=== PATIENT | male | born 1950 | race African-American/Black ===

== ENCOUNTER 2020-12-08 15:30 | Inpatient (IN) | payer MEDICARE ==
[2020-12-08] MEDS ORDERED: Ketorolac Tromethamine 30 MG/ML VIAL ONE (17:13)
[2020-12-08 18:45] LABS: Hemoglobin 12.5 g/dL (14.0-18.0); Mean Corpuscular HGB CONC 35.3 g/dL (32.0-36.0); Mean Corpuscular Hemoglobin 31.4 pg (27.0-31.0); Mean Corpuscular Volume 88.9 fL (78.0-98.0); Mean Platelet Volume 6.7 fL (7.4-10.4); Platelet Count 173 thou/uL (130-400); RBC Distribution Width 12.9 % (11.5-14.5); Red Blood Cell (RBC) Count 3.99 mill/uL (4.70-6.10); White Blood Cell (WBC) Count 2.5 thou/uL (4.8-10.8)
[2020-12-08 19:04] LABS: Band 9 % (5-11); Lymphocytes 19 % (21-51); MDiff Complete? YES; Monocytes 14 % (0-10); Neutrophil 58 % (42-75); Platelet Morphology Comment Appears Adequate; RBC Morphology Normal
[2020-12-08 19:07] LABS: ALT (SGPT) 9 U/L (8-55); AST (SGOT) 21 U/L (5-34); Albumin 4.1 g/dL (3.4-4.8); Alkaline Phosphatase 100 U/L (40-110); Anion Gap 18 mmol/L (10-20); BUN (Urea Nitrogen) 20 mg/dL (8.4-25.7); Calc. Creatinine Clearance 0 mL/min (70-130); Calcium 9.3 mg/dL (7.8-10.44); Carbon Dioxide 18 mmol/L (23-31); Chloride 99 mmol/L (98-107); Globulin 3.9 g/dL (2.4-3.5); Glucose 125 mg/dL (83-110); Potassium 3.5 mmol/L (3.5-5.1); Sodium 131 mmol/L (136-145)
[2020-12-08] MEDS ORDERED: Enoxaparin Sodium 80 MG/0.8 ML SYRINGE ONE (19:57)
[2020-12-08] MEDS ORDERED: Piperacillin/Tazobactam 4.5 GM VIAL ONE (19:58)
[2020-12-08 21:14] LABS: Bilirubin Negative (Negative); Blood, Urine Negative (Negative); Clarity Clear (Clear); Glucose, Urine (Dipstick) Normal (Negative); Ketone, Urine Negative (Negative); Leukocyte Negative Leu/uL (Negative); Nitrite Negative (Negative); Protein, Urine (Dipstick) 20 mg/dL (Neg-Trace); Specific Gravity, Urine 1.007 (1.002-1.036); Urobilinogen Normal mg/dL (Less than 2); pH, Urine 6.5 (5.0-9.0)
[2020-12-08 22:01] LABS: Lactic Acid 1.4 mmol/L (0.5-2.2)
[2020-12-08] MEDS ORDERED: Ondansetron PF 4 MG/2 ML Vial IVP PRN (23:15)
[2020-12-08] MEDS ORDERED: Ondansetron ODT 4 MG TAB PO PRN (23:15)
[2020-12-09] MEDS: Piperacillin/Tazobactam 3.375 GM in Sodium Chloride 0.9% 100 ML IVPB SCH ×5 (00:01→18:12)
[2020-12-09] MEDS ORDERED: Piperacillin/Tazobactam 3.375 GM in Sodium Chloride 0.9% 100 ML IVPB SCH (03:00)
[2020-12-09] MEDS: Acetaminophen 325 MG TAB PO PRN ×2 (05:44→14:57)
[2020-12-09 05:53] LABS: Vancomycin, Random Less than 1.1 ug/mL (See Comment)
[2020-12-09 05:57] LABS: Lymphocytes 16 % (21-51); MDiff Complete? YES; Mean Corpuscular Hemoglobin 31.5 pg (27.0-31.0); Mean Platelet Volume 6.8 fL (7.4-10.4); Monocytes 5 % (0-10); Neutrophil 79 % (42-75); Platelet Count 148 thou/uL (130-400); Platelet Morphology Comment Appears Adequate; RBC Distribution Width 12.8 % (11.5-14.5); Red Blood Cell (RBC) Count 3.82 mill/uL (4.70-6.10); White Blood Cell (WBC) Count 2.9 thou/uL (4.8-10.8)
[2020-12-09 05:58] LABS: Anion Gap 12 mmol/L (10-20); BUN (Urea Nitrogen) 18 mg/dL (8.4-25.7); Calc. Creatinine Clearance 68 mL/min (70-130); Calcium 8.9 mg/dL (7.8-10.44); Carbon Dioxide 21 mmol/L (23-31); Chloride 103 mmol/L (98-107); Glucose 93 mg/dL (83-110); Potassium 3.3 mmol/L (3.5-5.1); Sodium 133 mmol/L (136-145)
[2020-12-09] MEDS ORDERED: VANCOMYCIN 1.75 GM/350 ML BAG 1.75 GM in Premix Bag 1 BAG IVPB SCH (06:15)
[2020-12-09] MEDS ORDERED: Electrolyte Replacement Protocol 1 EACH FS SCH (06:45)
[2020-12-09] MEDS ORDERED: Potassium Chloride 20 MEQ TAB PO SCH (07:00)
[2020-12-09] MEDS ORDERED: Amlodipine 10 MG TAB PO SCH ×3 (09:00→13:15)
[2020-12-09] MEDS ORDERED: Lisinopril 20 MG TAB PO SCH (09:00)
[2020-12-09] MEDS ORDERED: VANCOMYCIN 1.25 GM/250 ML BAG 1.25 GM in Premix Bag 1 BAG IVPB SCH (09:00)
[2020-12-09] MEDS ORDERED: Carvedilol 25 MG TAB PO SCH ×2 (09:00→13:15)
[2020-12-09] MEDS: Cyanocobalamin (Vitamin B-12) 1,000 MCG TAB PO SCH (09:14)
[2020-12-09 10:39] LABS: Amphetamine Not Detected (NotDetected); Barbiturates Screen Not Detected (NotDetected); Benzodiazepine Screen Not Detected (NotDetected); Cocaine Metabolite Screen Not Detected (NotDetected); Methadone Not Detected (NotDetected); Methamphetamine Not Detected (NotDetected); Opiate Screen Not Detected (NotDetected); Oxycodone Screen Not Detected (NotDetected); Phencyclidine (PCP) Not Detected (NotDetected); THC/Cannabinoid Screen Not Detected (NotDetected); Tricyclic Screen Not Detected (NotDetected)
[2020-12-09] MEDS ORDERED: Lisinopril 10 MG TAB PO SCH (13:15)
[2020-12-09] MEDS ORDERED: Vancomycin 1 GM in Premix Bag 1 BAG IVPB SCH (18:00)
[2020-12-09] MEDS: Carvedilol 6.25 MG TAB PO SCH (18:12)
[2020-12-09] MEDS: NS 0.9% w/ 20 MEQ KCL 1,000 ML/1,000 ML BAG IV SCH (18:13)
[2020-12-09] MEDS: Enoxaparin Sodium 40 MG/0.4 ML SYRINGE SC SCH (19:58)
[2020-12-09] MEDS: Famotidine 20 MG TAB PO SCH (19:58)
[2020-12-09] MEDS: Atorvastatin Calcium 40 MG TAB PO SCH (19:59)
[2020-12-09] MEDS: Carvedilol 25 MG TAB PO SCH (19:59)
[2020-12-10] MEDS: Piperacillin/Tazobactam 3.375 GM in Sodium Chloride 0.9% 100 ML IVPB SCH ×3 (01:59→20:45)
[2020-12-10 05:11] LABS: #Lymphocytes 0.5 thou/uL (1.20-3.40); #Monocytes 0.2 thou/uL (0.11-0.59); #Neutrophils 1.7 thou/uL (1.40-6.50); %Eosinophils 0.6 % (0.0-10.0); %Lymphocytes 20.5 % (21.0-51.0); %Monocytes 8.7 % (0.0-10.0); %Neutrophils 70.3 % (42.0-75.0); Hemoglobin 10.6 g/dL (14.0-18.0); Mean Corpuscular HGB CONC 34.2 g/dL (32.0-36.0); Mean Corpuscular Hemoglobin 30.6 pg (27.0-31.0); Mean Corpuscular Volume 89.6 fL (78.0-98.0); Mean Platelet Volume 7.2 fL (7.4-10.4); Platelet Count 136 thou/uL (130-400); RBC Distribution Width 12.8 % (11.5-14.5); Red Blood Cell (RBC) Count 3.46 mill/uL (4.70-6.10); White Blood Cell (WBC) Count 2.5 thou/uL (4.8-10.8)
[2020-12-10 05:33] LABS: Anion Gap 13 mmol/L (10-20); BUN (Urea Nitrogen) 16 mg/dL (8.4-25.7); CRP (Inflammatory) 4.57 mg/dL (= or < 0.5); Calc. Creatinine Clearance 56 mL/min (70-130); Calcium 8.6 mg/dL (7.8-10.44); Carbon Dioxide 19 mmol/L (23-31); Chloride 105 mmol/L (98-107); Glucose 102 mg/dL (83-110); Potassium 3.4 mmol/L (3.5-5.1); Sodium 134 mmol/L (136-145)
[2020-12-10] MEDS: hydrALAZINE 20 MG/ML VIAL SLOW IVP PRN (05:36)
[2020-12-10] MEDS ORDERED: Potassium Chloride 20 MEQ TAB PO SCH ×2 (06:30→12:00)
[2020-12-10] MEDS: Carvedilol 6.25 MG TAB PO SCH ×2 (09:52→19:21)
[2020-12-10] MEDS: Amlodipine 10 MG TAB PO SCH (09:53)
[2020-12-10] MEDS: Carvedilol 25 MG TAB PO SCH (09:55)
[2020-12-10] MEDS: Famotidine 20 MG TAB PO SCH ×2 (09:56→20:47)
[2020-12-10] MEDS: Cyanocobalamin (Vitamin B-12) 1,000 MCG TAB PO SCH (09:56)
[2020-12-10] MEDS: Enoxaparin Sodium 40 MG/0.4 ML SYRINGE SC SCH ×2 (09:56→20:47)
[2020-12-10] MEDS: Lisinopril 10 MG TAB PO SCH (09:57)
[2020-12-10] MEDS: Tamsulosin HCl 0.4 MG CAP PO SCH (09:57)
[2020-12-10] MEDS ORDERED: Iopamidol-370 76% 500 ML 1 ML ONE (10:53)
[2020-12-10] MEDS: NS 0.9% w/ 20 MEQ KCL 1,000 ML/1,000 ML BAG IV SCH (19:17)
[2020-12-10] MEDS: Atorvastatin Calcium 40 MG TAB PO SCH (20:47)
[2020-12-10] MEDS: Carvedilol 3.125 MG TAB PO SCH (20:47)
[2020-12-11] MEDS: Piperacillin/Tazobactam 3.375 GM in Sodium Chloride 0.9% 100 ML IVPB SCH ×3 (02:14→17:30)
[2020-12-11] MEDS: hydrALAZINE 20 MG/ML VIAL SLOW IVP PRN (04:35)
[2020-12-11] MEDS: Famotidine 20 MG TAB PO SCH ×2 (08:11→21:43)
[2020-12-11] MEDS: Lisinopril 10 MG TAB PO SCH (08:11)
[2020-12-11] MEDS: Tamsulosin HCl 0.4 MG CAP PO SCH (08:11)
[2020-12-11] MEDS: Carvedilol 3.125 MG TAB PO SCH ×2 (08:11→17:54)
[2020-12-11] MEDS: Amlodipine 10 MG TAB PO SCH (08:11)
[2020-12-11] MEDS: Cyanocobalamin (Vitamin B-12) 1,000 MCG TAB PO SCH (08:12)
[2020-12-11] MEDS: Enoxaparin Sodium 40 MG/0.4 ML SYRINGE SC SCH ×2 (08:12→21:43)
[2020-12-11] MEDS ORDERED: Lisinopril 20 MG TAB PO SCH (09:00)
[2020-12-11] MEDS ORDERED: Amlodipine 10 MG TAB PO SCH (09:00)
[2020-12-11] MEDS ORDERED: Lisinopril 10 MG TAB PO SCH ×2 (09:00→10:00)
[2020-12-11] MEDS ORDERED: Carvedilol 6.25 MG TAB PO SCH ×2 (09:00→21:00)
[2020-12-11] MEDS ORDERED: Carvedilol 3.125 MG TAB PO SCH ×2 (09:00→10:00)
[2020-12-11] MEDS ORDERED: NIFEdipine XL 30 MG TAB PO SCH (10:45)
[2020-12-11] MEDS: Lisinopril 20 MG TAB PO SCH (21:43)
[2020-12-11] MEDS: Atorvastatin Calcium 40 MG TAB PO SCH (21:43)
[2020-12-11] MEDS: Acetaminophen 325 MG TAB PO PRN (21:44)
[2020-12-12] MEDS: Piperacillin/Tazobactam 3.375 GM in Sodium Chloride 0.9% 100 ML IVPB SCH ×3 (01:54→16:41)
[2020-12-12] MEDS: Acetaminophen 325 MG TAB PO PRN ×2 (07:37→15:33)
[2020-12-12] MEDS: Enoxaparin Sodium 40 MG/0.4 ML SYRINGE SC SCH ×2 (07:37→21:07)
[2020-12-12] MEDS: Carvedilol 3.125 MG TAB PO SCH ×2 (07:44→16:41)
[2020-12-12] MEDS: Tamsulosin HCl 0.4 MG CAP PO SCH (07:45)
[2020-12-12] MEDS: Famotidine 20 MG TAB PO SCH (07:45)
[2020-12-12] MEDS: Lisinopril 20 MG TAB PO SCH ×2 (07:46→21:07)
[2020-12-12] MEDS: Cyanocobalamin (Vitamin B-12) 1,000 MCG TAB PO SCH (07:47)
[2020-12-12] MEDS ORDERED: NIFEdipine XL 30 MG TAB PO SCH ×2 (09:00→10:41)
[2020-12-12] MEDS: NIFEdipine XL 30 MG TAB PO SCH ×2 (09:55→21:07)
[2020-12-12] MEDS: traMADol HCl 50 MG TAB PO PRN ×2 (12:39→21:14)
[2020-12-12] MEDS: Atorvastatin Calcium 40 MG TAB PO SCH (21:07)
[2020-12-13] MEDS: Piperacillin/Tazobactam 3.375 GM in Sodium Chloride 0.9% 100 ML IVPB SCH ×2 (01:45→09:05)
[2020-12-13] MEDS ORDERED: Famotidine 20 MG TAB PO SCH (09:00)
[2020-12-13] MEDS: Enoxaparin Sodium 40 MG/0.4 ML SYRINGE SC SCH ×2 (09:05→21:34)
[2020-12-13] MEDS: NIFEdipine XL 30 MG TAB PO SCH ×2 (09:05→21:35)
[2020-12-13] MEDS: Lisinopril 20 MG TAB PO SCH ×2 (09:06→21:34)
[2020-12-13] MEDS: Carvedilol 3.125 MG TAB PO SCH ×2 (09:06→16:58)
[2020-12-13] MEDS: Cyanocobalamin (Vitamin B-12) 1,000 MCG TAB PO SCH (09:06)
[2020-12-13] MEDS: Tamsulosin HCl 0.4 MG CAP PO SCH (09:06)
[2020-12-13] MEDS ORDERED: Sodium Chloride 0.9% 1,000 ML IV SCH (11:15)
[2020-12-13 12:00] LABS: #Lymphocytes 0.4 thou/uL (1.20-3.40); #Monocytes 0.2 thou/uL (0.11-0.59); #Neutrophils 1.8 thou/uL (1.40-6.50); %Basophils 0.9 % (0.0-1.0); %Eosinophils 0.1 % (0.0-10.0); %Lymphocytes 17.3 % (21.0-51.0); %Monocytes 8.7 % (0.0-10.0); %Neutrophils 73.1 % (42.0-75.0); Hemoglobin 11.6 g/dL (14.0-18.0); Mean Corpuscular HGB CONC 35.1 g/dL (32.0-36.0); Mean Corpuscular Hemoglobin 31.2 pg (27.0-31.0); Mean Corpuscular Volume 88.6 fL (78.0-98.0); Mean Platelet Volume 7.3 fL (7.4-10.4); Platelet Count 159 thou/uL (130-400); RBC Distribution Width 12.5 % (11.5-14.5); Red Blood Cell (RBC) Count 3.72 mill/uL (4.70-6.10); White Blood Cell (WBC) Count 2.5 thou/uL (4.8-10.8)
[2020-12-13 12:24] LABS: ALT (SGPT) 15 U/L (8-55); AST (SGOT) 35 U/L (5-34); Albumin 3.4 g/dL (3.4-4.8); Alkaline Phosphatase 69 U/L (40-110); Anion Gap 12 mmol/L (10-20); BUN (Urea Nitrogen) 15 mg/dL (8.4-25.7); Bilirubin, Total 0.8 mg/dL (0.2-1.2); CRP (Inflammatory) 6.48 mg/dL (= or < 0.5); Calc. Creatinine Clearance 69 mL/min (70-130); Calcium 8.9 mg/dL (7.8-10.44); Carbon Dioxide 20 mmol/L (23-31); Chloride 103 mmol/L (98-107); Globulin 3.8 g/dL (2.4-3.5); Glucose 123 mg/dL (83-110); Potassium 3.4 mmol/L (3.5-5.1); Protein, Total 7.2 g/dL (5.8-8.1); Sodium 132 mmol/L (136-145)
[2020-12-13] MEDS ORDERED: Potassium Chloride 20 MEQ TAB PO SCH ×2 (13:15→15:45)
[2020-12-13] MEDS: Acetaminophen 325 MG TAB PO PRN (17:24)
[2020-12-13] MEDS: Amino Acids 4.25 %/Dextrose 5% 1,000 ML IV SCH (17:25)
[2020-12-13] MEDS: Atorvastatin Calcium 40 MG TAB PO SCH (21:34)
[2020-12-14 05:38] LABS: #Lymphocytes 0.5 thou/uL (1.20-3.40); #Monocytes 0.2 thou/uL (0.11-0.59); #Neutrophils 1.4 thou/uL (1.40-6.50); %Basophils 0.7 % (0.0-1.0); %Eosinophils 0.7 % (0.0-10.0); %Lymphocytes 23.2 % (21.0-51.0); %Monocytes 9.3 % (0.0-10.0); %Neutrophils 66.1 % (42.0-75.0); Hemoglobin 11.9 g/dL (14.0-18.0); Mean Corpuscular HGB CONC 35.2 g/dL (32.0-36.0); Mean Corpuscular Hemoglobin 31.3 pg (27.0-31.0); Mean Corpuscular Volume 88.9 fL (78.0-98.0); Mean Platelet Volume 7.4 fL (7.4-10.4); Platelet Count 162 thou/uL (130-400); RBC Distribution Width 12.5 % (11.5-14.5); White Blood Cell (WBC) Count 2.1 thou/uL (4.8-10.8)
[2020-12-14] MEDS: traMADol HCl 50 MG TAB PO PRN (05:45)
[2020-12-14 06:02] LABS: ALT (SGPT) 22 U/L (8-55); AST (SGOT) 42 U/L (5-34); Albumin 3.5 g/dL (3.4-4.8); Alkaline Phosphatase 69 U/L (40-110); Anion Gap 11 mmol/L (10-20); BUN (Urea Nitrogen) 17 mg/dL (8.4-25.7); Bilirubin, Total 0.8 mg/dL (0.2-1.2); CRP (Inflammatory) 8.46 mg/dL (= or < 0.5); Calc. Creatinine Clearance 77 mL/min (70-130); Calcium 9.1 mg/dL (7.8-10.44); Carbon Dioxide 20 mmol/L (23-31); Chloride 107 mmol/L (98-107); Globulin 3.8 g/dL (2.4-3.5); Glucose 117 mg/dL (83-110); Magnesium 1.8 mg/dL (1.6-2.6); Potassium 3.6 mmol/L (3.5-5.1); Protein, Total 7.3 g/dL (5.8-8.1); Sodium 134 mmol/L (136-145)
[2020-12-14] MEDS ORDERED: Magnesium 2 GM/50 ML 2 GM in Premix Bag 1 BAG IVPB SCH (06:30)
[2020-12-14] MEDS: Cyanocobalamin (Vitamin B-12) 1,000 MCG TAB PO SCH (08:15)
[2020-12-14] MEDS: Carvedilol 3.125 MG TAB PO SCH ×3 (08:15→15:27)
[2020-12-14] MEDS: Enoxaparin Sodium 40 MG/0.4 ML SYRINGE SC SCH ×2 (08:15→21:45)
[2020-12-14] MEDS: Ascorbic Acid 500 mg Chewable Tablet PO SCH (08:15)
[2020-12-14] MEDS: Cholecalciferol (Vitamin D3) 400 UNITS TAB PO SCH (08:15)
[2020-12-14] MEDS: NIFEdipine XL 30 MG TAB PO SCH ×2 (08:16→21:44)
[2020-12-14] MEDS: Zinc Sulfate 220 MG CAP PO SCH (08:16)
[2020-12-14] MEDS: Tamsulosin HCl 0.4 MG CAP PO SCH (08:16)
[2020-12-14] MEDS: Lisinopril 20 MG TAB PO SCH ×2 (08:16→21:44)
[2020-12-14] MEDS ORDERED: Amino Acids 4.25 %/Dextrose 5% 2,000 ML BAG IV SCH (09:00)
[2020-12-14] MEDS: Acetaminophen 325 MG TAB PO PRN (10:29)
[2020-12-14] MEDS: Dexamethasone 4 mg/ml Vial SLOW IVP SCH (15:27)
[2020-12-14] MEDS: Amino Acids 4.25 %/Dextrose 5% 1,000 ML IV SCH (15:27)
[2020-12-14] MEDS: Atorvastatin Calcium 40 MG TAB PO SCH (21:44)
[2020-12-15] MEDS: Carvedilol 3.125 MG TAB PO SCH ×2 (08:38→16:49)
[2020-12-15] MEDS: Zinc Sulfate 220 MG CAP PO SCH (08:38)
[2020-12-15] MEDS: Ascorbic Acid 500 mg Chewable Tablet PO SCH (08:38)
[2020-12-15] MEDS: Cyanocobalamin (Vitamin B-12) 1,000 MCG TAB PO SCH (08:39)
[2020-12-15] MEDS: Enoxaparin Sodium 40 MG/0.4 ML SYRINGE SC SCH ×2 (08:39→22:28)
[2020-12-15] MEDS: Cholecalciferol (Vitamin D3) 400 UNITS TAB PO SCH (08:39)
[2020-12-15] MEDS: Lisinopril 20 MG TAB PO SCH ×2 (08:39→22:28)
[2020-12-15] MEDS: NIFEdipine XL 30 MG TAB PO SCH ×2 (08:39→22:28)
[2020-12-15] MEDS: Tamsulosin HCl 0.4 MG CAP PO SCH (08:40)
[2020-12-15] MEDS ORDERED: Amino Acids 4.25 %/Dextrose 5% 1,000 ML IV SCH (10:45)
[2020-12-15] MEDS ORDERED: Bisacodyl 10 MG SUPP PR SCH (11:15)
[2020-12-15] MEDS: Acetaminophen 325 MG TAB PO PRN (12:39)
[2020-12-15] MEDS: Dexamethasone 4 mg/ml Vial SLOW IVP SCH (16:49)
[2020-12-15] MEDS: Atorvastatin Calcium 40 MG TAB PO SCH (22:28)
[2020-12-15] MEDS: Mirtazapine 15 MG TAB PO SCH (22:29)
[2020-12-16 07:05] LABS: #Lymphocytes 0.3 thou/uL (1.20-3.40); #Monocytes 0.2 thou/uL (0.11-0.59); #Neutrophils 3.4 thou/uL (1.40-6.50); %Eosinophils 0.2 % (0.0-10.0); %Lymphocytes 6.8 % (21.0-51.0); %Monocytes 5.9 % (0.0-10.0); %Neutrophils 87.1 % (42.0-75.0); Hemoglobin 12.3 g/dL (14.0-18.0); Mean Corpuscular HGB CONC 34.3 g/dL (32.0-36.0); Mean Corpuscular Hemoglobin 30.6 pg (27.0-31.0); Mean Corpuscular Volume 89.1 fL (78.0-98.0); Mean Platelet Volume 7.5 fL (7.4-10.4); Platelet Count 242 thou/uL (130-400); RBC Distribution Width 12.4 % (11.5-14.5); Red Blood Cell (RBC) Count 4.02 mill/uL (4.70-6.10); White Blood Cell (WBC) Count 3.9 thou/uL (4.8-10.8)
[2020-12-16 07:21] LABS: Anion Gap 11 mmol/L (10-20); BUN (Urea Nitrogen) 25 mg/dL (8.4-25.7); CRP (Inflammatory) 2.59 mg/dL (= or < 0.5); Calc. Creatinine Clearance 82 mL/min (70-130); Calcium 9.4 mg/dL (7.8-10.44); Carbon Dioxide 19 mmol/L (23-31); Chloride 109 mmol/L (98-107); Glucose 141 mg/dL (83-110); Potassium 3.7 mmol/L (3.5-5.1); Sodium 135 mmol/L (136-145)
[2020-12-16] MEDS: Tamsulosin HCl 0.4 MG CAP PO SCH (08:13)
[2020-12-16] MEDS: Zinc Sulfate 220 MG CAP PO SCH (08:13)
[2020-12-16] MEDS: Cholecalciferol (Vitamin D3) 400 UNITS TAB PO SCH (08:13)
[2020-12-16] MEDS: Enoxaparin Sodium 40 MG/0.4 ML SYRINGE SC SCH ×2 (08:13→21:57)
[2020-12-16] MEDS: Cyanocobalamin (Vitamin B-12) 1,000 MCG TAB PO SCH (08:13)
[2020-12-16] MEDS: Carvedilol 3.125 MG TAB PO SCH (08:13)
[2020-12-16] MEDS: NIFEdipine XL 30 MG TAB PO SCH ×2 (08:13→21:56)
[2020-12-16] MEDS: Ascorbic Acid 500 mg Chewable Tablet PO SCH (08:14)
[2020-12-16] MEDS: Lisinopril 20 MG TAB PO SCH ×2 (08:14→21:57)
[2020-12-16] MEDS: Megestrol Acetate 40 MG TAB PO SCH ×2 (14:59→21:57)
[2020-12-16] MEDS: hydrALAZINE 25 MG TAB PO SCH ×2 (14:59→21:57)
[2020-12-16] MEDS: hydrALAZINE 20 MG/ML VIAL SLOW IVP PRN (15:09)
[2020-12-16] MEDS: traMADol HCl 50 MG TAB PO PRN (17:02)
[2020-12-16] MEDS: Mirtazapine 15 MG TAB PO SCH (21:57)
[2020-12-16] MEDS: Atorvastatin Calcium 40 MG TAB PO SCH (21:57)
[2020-12-16] MEDS ORDERED: Amino Acids 4.25 %/Dextrose 5% 2,000 ML IV SCH (22:30)
[2020-12-17 05:28] LABS: #Lymphocytes 0.5 thou/uL (1.20-3.40); #Monocytes 0.4 thou/uL (0.11-0.59); %Lymphocytes 10.2 % (21.0-51.0); %Monocytes 7.4 % (0.0-10.0); %Neutrophils 82.4 % (42.0-75.0); Hemoglobin 11.4 g/dL (14.0-18.0); Mean Corpuscular Hemoglobin 30.1 pg (27.0-31.0); Mean Corpuscular Volume 88.5 fL (78.0-98.0); Mean Platelet Volume 6.9 fL (7.4-10.4); Platelet Count 232 thou/uL (130-400); RBC Distribution Width 12.4 % (11.5-14.5); White Blood Cell (WBC) Count 4.8 thou/uL (4.8-10.8)
[2020-12-17 06:02] LABS: Anion Gap 11 mmol/L (10-20); BUN (Urea Nitrogen) 23 mg/dL (8.4-25.7); CRP (Inflammatory) 1.33 mg/dL (= or < 0.5); Calc. Creatinine Clearance 82 mL/min (70-130); Calcium 8.8 mg/dL (7.8-10.44); Carbon Dioxide 16 mmol/L (23-31); Chloride 111 mmol/L (98-107); Glucose 105 mg/dL (83-110); Magnesium 1.8 mg/dL (1.6-2.6); Potassium 3.2 mmol/L (3.5-5.1); Sodium 135 mmol/L (136-145)
[2020-12-17] MEDS ORDERED: Potassium Chloride 20 MEQ TAB PO SCH (06:30)
[2020-12-17] MEDS ORDERED: Magnesium 2 GM/50 ML 2 GM in Premix Bag 1 BAG IVPB SCH (06:30)
[2020-12-17] MEDS: Ascorbic Acid 500 mg Chewable Tablet PO SCH (07:56)
[2020-12-17] MEDS: Cholecalciferol (Vitamin D3) 400 UNITS TAB PO SCH (07:57)
[2020-12-17] MEDS: hydrALAZINE 25 MG TAB PO SCH ×3 (07:57→21:51)
[2020-12-17] MEDS: Megestrol Acetate 40 MG TAB PO SCH ×3 (07:57→21:53)
[2020-12-17] MEDS: Enoxaparin Sodium 40 MG/0.4 ML SYRINGE SC SCH ×2 (07:57→21:51)
[2020-12-17] MEDS: NIFEdipine XL 30 MG TAB PO SCH ×2 (07:57→21:53)
[2020-12-17] MEDS: Cyanocobalamin (Vitamin B-12) 1,000 MCG TAB PO SCH (07:58)
[2020-12-17] MEDS: Tamsulosin HCl 0.4 MG CAP PO SCH (07:58)
[2020-12-17] MEDS: Lisinopril 20 MG TAB PO SCH ×2 (07:58→21:52)
[2020-12-17] MEDS: Zinc Sulfate 220 MG CAP PO SCH (07:58)
[2020-12-17] MEDS: hydrALAZINE 20 MG/ML VIAL SLOW IVP PRN (12:25)
[2020-12-17] MEDS: Atorvastatin Calcium 40 MG TAB PO SCH (21:51)
[2020-12-17] MEDS: Mirtazapine 15 MG TAB PO SCH (21:52)
[2020-12-18 05:36] LABS: #Lymphocytes 0.4 thou/uL (1.20-3.40); #Monocytes 0.3 thou/uL (0.11-0.59); #Neutrophils 3.1 thou/uL (1.40-6.50); %Eosinophils 0.8 % (0.0-10.0); %Lymphocytes 11.2 % (21.0-51.0); %Monocytes 8.2 % (0.0-10.0); %Neutrophils 79.9 % (42.0-75.0); Hemoglobin 11.4 g/dL (14.0-18.0); Mean Corpuscular HGB CONC 35.1 g/dL (32.0-36.0); Mean Corpuscular Hemoglobin 31.2 pg (27.0-31.0); Mean Corpuscular Volume 88.9 fL (78.0-98.0); Mean Platelet Volume 6.8 fL (7.4-10.4); Platelet Count 243 thou/uL (130-400); RBC Distribution Width 12.7 % (11.5-14.5); Red Blood Cell (RBC) Count 3.64 mill/uL (4.70-6.10); White Blood Cell (WBC) Count 3.9 thou/uL (4.8-10.8)
[2020-12-18 05:56] LABS: Anion Gap 9 mmol/L (10-20); BUN (Urea Nitrogen) 23 mg/dL (8.4-25.7); Calc. Creatinine Clearance 72 mL/min (70-130); Calcium 8.7 mg/dL (7.8-10.44); Carbon Dioxide 18 mmol/L (23-31); Chloride 110 mmol/L (98-107); Glucose 99 mg/dL (83-110); Magnesium 1.9 mg/dL (1.6-2.6); Sodium 134 mmol/L (136-145)
[2020-12-18] MEDS ORDERED: Potassium Chloride 20 MEQ TAB PO SCH (07:00)
[2020-12-18] MEDS ORDERED: Magnesium 2 GM/50 ML 2 GM in Premix Bag 1 BAG IVPB SCH (07:00)
[2020-12-18] MEDS: Ascorbic Acid 500 mg Chewable Tablet PO SCH (07:38)
[2020-12-18] MEDS: Cholecalciferol (Vitamin D3) 400 UNITS TAB PO SCH (07:39)
[2020-12-18] MEDS: Enoxaparin Sodium 40 MG/0.4 ML SYRINGE SC SCH ×2 (07:39→21:21)
[2020-12-18] MEDS: hydrALAZINE 25 MG TAB PO SCH ×3 (07:39→21:21)
[2020-12-18] MEDS: Lisinopril 20 MG TAB PO SCH ×2 (07:39→21:21)
[2020-12-18] MEDS: Cyanocobalamin (Vitamin B-12) 1,000 MCG TAB PO SCH (07:39)
[2020-12-18] MEDS: NIFEdipine XL 30 MG TAB PO SCH ×2 (07:40→21:22)
[2020-12-18] MEDS: Megestrol Acetate 40 MG TAB PO SCH ×3 (07:40→21:22)
[2020-12-18] MEDS: Zinc Sulfate 220 MG CAP PO SCH (07:41)
[2020-12-18] MEDS: Tamsulosin HCl 0.4 MG CAP PO SCH (07:41)
[2020-12-18] MEDS: Atorvastatin Calcium 40 MG TAB PO SCH (21:21)
[2020-12-18] MEDS: Mirtazapine 15 MG TAB PO SCH (21:22)
[2020-12-19 05:39] LABS: Anion Gap 10 mmol/L (10-20); BUN (Urea Nitrogen) 27 mg/dL (8.4-25.7); Calc. Creatinine Clearance 74 mL/min (70-130); Carbon Dioxide 15 mmol/L (23-31); Chloride 109 mmol/L (98-107); Potassium 3.2 mmol/L (3.5-5.1); Sodium 131 mmol/L (136-145)
[2020-12-19 05:40] LABS: Calcium 8.8 mg/dL (7.8-10.44); Glucose 112 mg/dL (83-110)
[2020-12-19] MEDS ORDERED: Potassium Chloride 20 MEQ TAB PO SCH (06:45)
[2020-12-19] MEDS: hydrALAZINE 25 MG TAB PO SCH ×3 (07:43→20:27)
[2020-12-19] MEDS: Enoxaparin Sodium 40 MG/0.4 ML SYRINGE SC SCH ×2 (07:43→20:39)
[2020-12-19] MEDS: Cyanocobalamin (Vitamin B-12) 1,000 MCG TAB PO SCH (07:43)
[2020-12-19] MEDS: Cholecalciferol (Vitamin D3) 400 UNITS TAB PO SCH (07:43)
[2020-12-19] MEDS: Ascorbic Acid 500 mg Chewable Tablet PO SCH (07:43)
[2020-12-19] MEDS: Lisinopril 20 MG TAB PO SCH ×2 (07:44→20:28)
[2020-12-19] MEDS: NIFEdipine XL 30 MG TAB PO SCH ×2 (07:44→20:28)
[2020-12-19] MEDS: Megestrol Acetate 40 MG TAB PO SCH ×3 (07:44→20:28)
[2020-12-19] MEDS: Tamsulosin HCl 0.4 MG CAP PO SCH (07:45)
[2020-12-19] MEDS: Zinc Sulfate 220 MG CAP PO SCH (07:45)
[2020-12-19] MEDS: Atorvastatin Calcium 40 MG TAB PO SCH (20:27)
[2020-12-19] MEDS: Mirtazapine 15 MG TAB PO SCH (20:27)
[2020-12-19] MEDS: Amino Acids 4.25 %/Dextrose 5% 2,000 ML IV SCH (21:57)
[2020-12-20 05:58] VITALS: BMI 21.4
[2020-12-20] MEDS: Tamsulosin HCl 0.4 MG CAP PO SCH (08:57)
[2020-12-20] MEDS: Enoxaparin Sodium 40 MG/0.4 ML SYRINGE SC SCH ×2 (08:58→20:53)
[2020-12-20] MEDS ORDERED: Amino Acids 4.25 %/Dextrose 5% 2,000 ML BAG IV SCH ×2 (09:00)
[2020-12-20] MEDS: Cyanocobalamin (Vitamin B-12) 1,000 MCG TAB PO SCH ×3 (10:50→15:06)
[2020-12-20] MEDS: Ascorbic Acid 500 mg Chewable Tablet PO SCH ×3 (10:50→15:06)
[2020-12-20] MEDS: Megestrol Acetate 40 MG TAB PO SCH ×3 (10:50→20:57)
[2020-12-20] MEDS: hydrALAZINE 25 MG TAB PO SCH ×3 (10:50→20:54)
[2020-12-20] MEDS: Cholecalciferol (Vitamin D3) 400 UNITS TAB PO SCH ×3 (10:50→15:06)
[2020-12-20] MEDS: Zinc Sulfate 220 MG CAP PO SCH ×3 (10:51→15:06)
[2020-12-20] MEDS: NIFEdipine XL 30 MG TAB PO SCH ×2 (11:31→20:58)
[2020-12-20] MEDS: Lisinopril 20 MG TAB PO SCH ×2 (11:31→20:57)
[2020-12-20] MEDS: Mirtazapine 15 MG TAB PO SCH (20:57)
[2020-12-20] MEDS: Atorvastatin Calcium 40 MG TAB PO SCH (20:58)
[2020-12-20] MEDS: Amino Acids 4.25 %/Dextrose 5% 2,000 ML IV SCH (22:49)
[2020-12-21] MEDS: traMADol HCl 50 MG TAB PO PRN (00:31)
[2020-12-21] MEDS: NIFEdipine XL 30 MG TAB PO SCH ×2 (09:11→21:10)
[2020-12-21] MEDS: Zinc Sulfate 220 MG CAP PO SCH (09:11)
[2020-12-21] MEDS: Lisinopril 20 MG TAB PO SCH ×2 (09:11→21:10)
[2020-12-21] MEDS: Megestrol Acetate 40 MG TAB PO SCH ×3 (09:11→21:11)
[2020-12-21] MEDS: Cyanocobalamin (Vitamin B-12) 1,000 MCG TAB PO SCH (09:11)
[2020-12-21] MEDS: Cholecalciferol (Vitamin D3) 400 UNITS TAB PO SCH (09:11)
[2020-12-21] MEDS: hydrALAZINE 25 MG TAB PO SCH ×3 (09:11→21:11)
[2020-12-21] MEDS: Ascorbic Acid 500 mg Chewable Tablet PO SCH (09:11)
[2020-12-21] MEDS: Tamsulosin HCl 0.4 MG CAP PO SCH (09:12)
[2020-12-21] MEDS: Enoxaparin Sodium 40 MG/0.4 ML SYRINGE SC SCH ×2 (09:14→21:11)
[2020-12-21] MEDS ORDERED: Potassium Chloride 20 MEQ TAB PO SCH (14:30)
[2020-12-21] MEDS: Potassium Chloride 20 MEQ TAB PO SCH (16:48)
[2020-12-21] MEDS: Mirtazapine 15 MG TAB PO SCH (21:10)
[2020-12-21] MEDS: Atorvastatin Calcium 40 MG TAB PO SCH (21:11)
[2020-12-21] MEDS: Amino Acids 4.25 %/Dextrose 5% 2,000 ML IV SCH (21:12)
[2020-12-22] MEDS: Cyanocobalamin (Vitamin B-12) 1,000 MCG TAB PO SCH (08:00)
[2020-12-22] MEDS: hydrALAZINE 25 MG TAB PO SCH ×3 (08:00→22:17)
[2020-12-22] MEDS: Ascorbic Acid 500 mg Chewable Tablet PO SCH (08:00)
[2020-12-22] MEDS: Potassium Chloride 20 MEQ TAB PO SCH ×2 (08:00→15:42)
[2020-12-22] MEDS: NIFEdipine XL 30 MG TAB PO SCH ×2 (08:01→21:00)
[2020-12-22] MEDS: Tamsulosin HCl 0.4 MG CAP PO SCH (08:01)
[2020-12-22] MEDS: Megestrol Acetate 40 MG TAB PO SCH ×3 (08:01→21:00)
[2020-12-22] MEDS: Lisinopril 20 MG TAB PO SCH ×2 (08:01→21:00)
[2020-12-22] MEDS: Enoxaparin Sodium 40 MG/0.4 ML SYRINGE SC SCH ×2 (08:01→21:00)
[2020-12-22] MEDS: Zinc Sulfate 220 MG CAP PO SCH (08:01)
[2020-12-22] MEDS: Cholecalciferol (Vitamin D3) 400 UNITS TAB PO SCH (08:01)
[2020-12-22] MEDS: Atorvastatin Calcium 40 MG TAB PO SCH (21:00)
[2020-12-22] MEDS: Mirtazapine 15 MG TAB PO SCH (21:00)
[2020-12-22] MEDS: Acetaminophen 325 MG TAB PO PRN (22:53)
[2020-12-22] MEDS: Amino Acids 4.25 %/Dextrose 5% 2,000 ML IV SCH (23:05)
[2020-12-23 08:01] VITALS: TEMP 98
[2020-12-23] MEDS: Ascorbic Acid 500 mg Chewable Tablet PO SCH (08:47)
[2020-12-23] MEDS: Cyanocobalamin (Vitamin B-12) 1,000 MCG TAB PO SCH (08:47)
[2020-12-23] MEDS: Potassium Chloride 20 MEQ TAB PO SCH (08:47)
[2020-12-23] MEDS: hydrALAZINE 25 MG TAB PO SCH ×2 (08:48→14:40)
[2020-12-23] MEDS: Enoxaparin Sodium 40 MG/0.4 ML SYRINGE SC SCH (08:48)
[2020-12-23] MEDS: NIFEdipine XL 30 MG TAB PO SCH (08:54)
[2020-12-23] MEDS: Megestrol Acetate 40 MG TAB PO SCH ×2 (08:54→14:40)
[2020-12-23] MEDS: Lisinopril 20 MG TAB PO SCH (08:54)
[2020-12-23] MEDS: Cholecalciferol (Vitamin D3) 400 UNITS TAB PO SCH (08:54)
[2020-12-23] MEDS: Zinc Sulfate 220 MG CAP PO SCH (08:54)
[2020-12-23] MEDS: Tamsulosin HCl 0.4 MG CAP PO SCH (08:54)
[2020-12-23 14:40] VITALS: BP 112/67
== END 2020-12-23 16:47 | disposition home or self-care (01) | DRG 871 ==
LOC: ERS 15:30 → T4-A 20:01 → OBSVTOIN 20:01 → INTOOBSV 20:01 → 2SW 12-09 14:53 → T4-A 12-19 13:43
PROVIDERS: ADMIT Internal Medicine; ATTEND Family Medicine
PROC: 8E0ZXY6 Isolation (ICD-10-PCS; principal; 2020-12-08)
DX: A41.89 Other specified sepsis (principal); U07.1 COVID-19; G93.41 Metabolic encephalopathy; N17.9 Acute kidney failure, unspecified; I69.351 Hemiplegia and hemiparesis following cerebral infarction affecting right dominant side; E87.1 Hypo-osmolality and hyponatremia; I10 Essential (primary) hypertension; I25.10 Atherosclerotic heart disease of native coronary artery without angina pectoris; I44.0 Atrioventricular block, first degree; D64.9 Anemia, unspecified; E87.6 Hypokalemia; Z66 Do not resuscitate; Z79.899 Other long term (current) drug therapy; I25.2 Old myocardial infarction; Z95.5 Presence of coronary angioplasty implant and graft; Z95.1 Presence of aortocoronary bypass graft
CPT/HCPCS: 36415; 36416; 70450; 71045; 71275; 74018; 80048; 80053; 80202; 80306; 81003; 82140; 82728; 83605; 83735; 84484; 85025; 85379; 86140; 87040; 87086; 93005; 96365; 96372; J0360; J1100; J1650; J1885; J2543; J3370; J3475; J3480; J3490; Q9967; S0179

== ENCOUNTER 2020-12-29 12:01 | Inpatient (IN) | payer MEDICARE ==
[~2020-12-29 12:01] MED LIST: Iopamidol-370 76% 500 ML 1 ML ONE
[2020-12-29] MEDS ORDERED: Ondansetron PF 4 MG/2 ML Vial ONE (12:20)
[2020-12-29 13:21] LABS: #Lymphocytes 0.5 thou/uL (1.20-3.40); #Monocytes 0.4 thou/uL (0.11-0.59); #Neutrophils 5.7 thou/uL (1.40-6.50); %Eosinophils 0.1 % (0.0-10.0); %Lymphocytes 7.9 % (21.0-51.0); %Monocytes 5.4 % (0.0-10.0); %Neutrophils 86.6 % (42.0-75.0); Hemoglobin 12.6 g/dL (14.0-18.0); Mean Corpuscular HGB CONC 34.2 g/dL (32.0-36.0); Mean Corpuscular Hemoglobin 30.8 pg (27.0-31.0); Mean Corpuscular Volume 89.9 fL (78.0-98.0); Mean Platelet Volume 6.6 fL (7.4-10.4); Platelet Count 376 thou/uL (130-400); RBC Distribution Width 13.3 % (11.5-14.5); Red Blood Cell (RBC) Count 4.09 mill/uL (4.70-6.10); White Blood Cell (WBC) Count 6.6 thou/uL (4.8-10.8)
[2020-12-29 13:38] LABS: ALT (SGPT) 25 U/L (8-55); AST (SGOT) 12 U/L (5-34); Alkaline Phosphatase 88 U/L (40-110); Anion Gap 21 mmol/L (10-20); BUN (Urea Nitrogen) 46 mg/dL (8.4-25.7); Bilirubin, Total 0.5 mg/dL (0.2-1.2); Calc. Creatinine Clearance 0 mL/min (70-130); Calcium 10.6 mg/dL (7.8-10.44); Carbon Dioxide 14 mmol/L (23-31); Chloride 110 mmol/L (98-107); Globulin 4.4 g/dL (2.4-3.5); Glucose 153 mg/dL (83-110); Lipase 63 U/L (8-78); Potassium 4.5 mmol/L (3.5-5.1); Protein, Total 8.4 g/dL (5.8-8.1); Sodium 140 mmol/L (136-145)
[2020-12-29] MEDS ORDERED: Piperacillin/Tazobactam 2.25 GM in Sodium Chloride 0.9% 100 ML IVPB SCH ×2 (15:15→18:00)
[2020-12-29] MEDS ORDERED: Metoclopramide HCl 10 MG/2 ML VIAL ONE (15:48)
[2020-12-29 16:15] LABS: Lactic Acid 2.8 mmol/L (0.5-2.2)
[2020-12-29 17:34] VITALS: BMI 23.5
[2020-12-29] MEDS ORDERED: Metoclopramide HCl 10 MG TAB PO PRN (17:37)
[2020-12-29] MEDS ORDERED: Acetaminophen 325 MG TAB PO PRN (17:37)
[2020-12-29] MEDS ORDERED: Labetalol HCl 100 MG/20 ML VIAL SLOW IVP PRN (17:37)
[2020-12-29] MEDS ORDERED: Morphine 2 MG/ML VIAL SLOW IVP PRN (17:37)
[2020-12-29 18:06] LABS: SARS-CoV-2 NAA Rapid Test DETECTED (NotDetected)
[2020-12-29] MEDS: Lactated Ringer's 1,000 ML IV SCH (18:26)
[2020-12-29] MEDS: Pantoprazole 40 MG VIAL IVP SCH (22:35)
[2020-12-29] MEDS: Piperacillin/Tazobactam 3.375 GM in Sodium Chloride 0.9% 100 ML IVPB SCH (22:35)
[2020-12-29] MEDS: Heparin 5,000 UNITS/ML VIAL SC SCH (22:37)
[2020-12-30] MEDS: Lactated Ringer's 1,000 ML IV SCH ×3 (02:59→17:37)
[2020-12-30] MEDS: Piperacillin/Tazobactam 3.375 GM in Sodium Chloride 0.9% 100 ML IVPB SCH ×3 (05:28→20:36)
[2020-12-30 07:09] LABS: #Eosinphils 0.1 thou/uL (0.0-0.7); #Lymphocytes 0.8 thou/uL (1.20-3.40); #Monocytes 0.8 thou/uL (0.11-0.59); #Neutrophils 3.9 thou/uL (1.40-6.50); %Basophils 0.2 % (0.0-1.0); %Eosinophils 2.1 % (0.0-10.0); %Lymphocytes 13.6 % (21.0-51.0); %Monocytes 13.5 % (0.0-10.0); %Neutrophils 70.5 % (42.0-75.0); Anion Gap 11 mmol/L (10-20); BUN (Urea Nitrogen) 40 mg/dL (8.4-25.7); Calc. Creatinine Clearance 46 mL/min (70-130); Calcium 9.2 mg/dL (7.8-10.44); Carbon Dioxide 17 mmol/L (23-31); Chloride 114 mmol/L (98-107); Glucose 115 mg/dL (83-110); Hemoglobin 9.5 g/dL (14.0-18.0); Mean Corpuscular HGB CONC 34.6 g/dL (32.0-36.0); Mean Corpuscular Hemoglobin 30.6 pg (27.0-31.0); Mean Corpuscular Volume 88.5 fL (78.0-98.0); Mean Platelet Volume 6.7 fL (7.4-10.4); Platelet Count 292 thou/uL (130-400); Potassium 4.2 mmol/L (3.5-5.1); RBC Distribution Width 13.3 % (11.5-14.5); Sodium 138 mmol/L (136-145); White Blood Cell (WBC) Count 5.5 thou/uL (4.8-10.8)
[2020-12-30] MEDS ORDERED: Acetaminophen 325 MG TAB PO PRN (08:05)
[2020-12-30] MEDS: Pantoprazole 40 MG VIAL IVP SCH ×2 (08:43→20:37)
[2020-12-30] MEDS: Cyanocobalamin (Vitamin B-12) 1,000 MCG TAB PO SCH (08:43)
[2020-12-30] MEDS: Carvedilol 25 MG TAB PO SCH ×2 (08:43→20:36)
[2020-12-30] MEDS: Heparin 5,000 UNITS/ML VIAL SC SCH ×2 (08:43→20:36)
[2020-12-30] MEDS ORDERED: Iopamidol-370 76% 500 ML 1 ML ONE (09:36)
[2020-12-30 14:44] LABS: Bacteria/HPF None Seen HPF (None Seen); Bilirubin Negative (Negative); Blood, Urine Negative (Negative); Clarity Clear (Clear); Glucose, Urine (Dipstick) Normal (Negative); Ketone, Urine Negative (Negative); Leukocyte Negative Leu/uL (Negative); Nitrite Negative (Negative); Protein, Urine (Dipstick) Negative (Neg-Trace); RBC/HPF 0-3 HPF (0-3); Specific Gravity, Urine 1.027 (1.002-1.036); Squamous Epithelial 0-3 HPF (0-3); Urobilinogen Normal mg/dL (Less than 2); WBC/HPF 0-3 HPF (0-3); pH, Urine 5.5 (5.0-9.0)
[2020-12-30 14:49] LABS: Urine Culture Reflex No No
[2020-12-30] MEDS: Atorvastatin Calcium 40 MG TAB PO SCH (20:36)
[2020-12-31] MEDS: Piperacillin/Tazobactam 3.375 GM in Sodium Chloride 0.9% 100 ML IVPB SCH ×3 (04:20→21:02)
[2020-12-31] MEDS: Lactated Ringer's 1,000 ML IV SCH ×2 (04:21→10:03)
[2020-12-31] MEDS: Heparin 5,000 UNITS/ML VIAL SC SCH ×2 (08:54→21:03)
[2020-12-31] MEDS: Carvedilol 25 MG TAB PO SCH ×2 (08:56→21:03)
[2020-12-31] MEDS: Cyanocobalamin (Vitamin B-12) 1,000 MCG TAB PO SCH (08:56)
[2020-12-31] MEDS: Pantoprazole 40 MG VIAL IVP SCH ×2 (08:56→21:02)
[2020-12-31] MEDS: Tamsulosin HCl 0.4 MG CAP PO SCH (10:01)
[2020-12-31] MEDS: NIFEdipine XL 30 MG TAB PO SCH ×2 (10:03→21:02)
[2020-12-31] MEDS ORDERED: Aspirin 81 mg Enteric Coated Tablet PO SCH (11:15)
[2020-12-31] MEDS ORDERED: Piperacillin/Tazobactam 3.375 GM VIAL ONE (12:19)
[2020-12-31 12:29] LABS: Anion Gap 10 mmol/L (10-20); BUN (Urea Nitrogen) 19 mg/dL (8.4-25.7); Calc. Creatinine Clearance 61 mL/min (70-130); Carbon Dioxide 19 mmol/L (23-31); Chloride 111 mmol/L (98-107); Glucose 94 mg/dL (83-110); Potassium 3.8 mmol/L (3.5-5.1); Sodium 136 mmol/L (136-145)
[2020-12-31] MEDS ORDERED: hydrALAZINE 20 MG/ML VIAL SLOW IVP PRN (14:57)
[2020-12-31] MEDS ORDERED: Mirtazapine 15 MG TAB PO SCH (21:00)
[2020-12-31] MEDS: Docusate 100 MG CAP PO SCH (21:02)
[2020-12-31] MEDS: Atorvastatin Calcium 40 MG TAB PO SCH (21:03)
[2021-01-01] MEDS: Lactated Ringer's 1,000 ML IV SCH ×2 (02:10→13:50)
[2021-01-01] MEDS: Piperacillin/Tazobactam 3.375 GM in Sodium Chloride 0.9% 100 ML IVPB SCH ×2 (04:29→12:48)
[2021-01-01 05:43] LABS: #Eosinphils 0.2 thou/uL (0.0-0.7); #Lymphocytes 0.5 thou/uL (1.20-3.40); #Monocytes 0.3 thou/uL (0.11-0.59); #Neutrophils 1.6 thou/uL (1.40-6.50); %Eosinophils 6.8 % (0.0-10.0); %Lymphocytes 18.3 % (21.0-51.0); %Monocytes 12.9 % (0.0-10.0); Mean Corpuscular HGB CONC 35.4 g/dL (32.0-36.0); Mean Corpuscular Hemoglobin 31.1 pg (27.0-31.0); Mean Corpuscular Volume 87.8 fL (78.0-98.0); Mean Platelet Volume 6.4 fL (7.4-10.4); Platelet Count 210 thou/uL (130-400); RBC Distribution Width 12.8 % (11.5-14.5); Red Blood Cell (RBC) Count 3.23 mill/uL (4.70-6.10); White Blood Cell (WBC) Count 2.5 thou/uL (4.8-10.8)
[2021-01-01 05:58] LABS: Lactic Acid 1.6 mmol/L (0.5-2.2)
[2021-01-01 06:02] LABS: Phosphorus 2.1 mg/dL (2.3-4.7)
[2021-01-01 06:04] LABS: Anion Gap 9 mmol/L (10-20); BUN (Urea Nitrogen) 14 mg/dL (8.4-25.7); Calc. Creatinine Clearance 65 mL/min (70-130); Calcium 9.1 mg/dL (7.8-10.44); Carbon Dioxide 23 mmol/L (23-31); Chloride 107 mmol/L (98-107); Glucose 119 mg/dL (83-110); Magnesium 1.6 mg/dL (1.6-2.6); Potassium 3.4 mmol/L (3.5-5.1); Sodium 136 mmol/L (136-145)
[2021-01-01 07:20] VITALS: TEMP 98.4
[2021-01-01] MEDS: Pantoprazole 40 MG VIAL IVP SCH (08:57)
[2021-01-01] MEDS: Heparin 5,000 UNITS/ML VIAL SC SCH (08:58)
[2021-01-01] MEDS: Tamsulosin HCl 0.4 MG CAP PO SCH (08:59)
[2021-01-01] MEDS: Carvedilol 25 MG TAB PO SCH (08:59)
[2021-01-01] MEDS: NIFEdipine XL 30 MG TAB PO SCH (08:59)
[2021-01-01] MEDS: Docusate 100 MG CAP PO SCH (09:00)
[2021-01-01] MEDS: Cyanocobalamin (Vitamin B-12) 1,000 MCG TAB PO SCH (09:00)
[2021-01-01] MEDS ORDERED: Aspirin 81 mg Enteric Coated Tablet PO SCH (09:00)
[2021-01-01] MEDS ORDERED: K-Phos Neutral 250 MG TAB PO SCH ×2 (09:45→12:00)
[2021-01-01] MEDS ORDERED: Magnesium Sulfate 4 GM in Sodium Chloride 0.9% 250 ML 250 ML IVPB SCH (11:00)
[2021-01-01 16:01] VITALS: BP 178/75
== END 2021-01-01 16:32 | disposition home or self-care (01) | DRG 389 ==
LOC: ERS 12:01 → T4-B 15:27 → INTOOBSV 15:27 → OBSVTOIN 12-30 09:30
PROVIDERS: ADMIT Internal Medicine; ATTEND Internal Medicine
PROC: 8E0ZXY6 Isolation (ICD-10-PCS; principal; 2020-12-30)
DX: K56.609 Unspecified intestinal obstruction, unspecified as to partial versus complete obstruction (principal); N17.9 Acute kidney failure, unspecified; E87.2 Acidosis; I69.351 Hemiplegia and hemiparesis following cerebral infarction affecting right dominant side; I70.92 Chronic total occlusion of artery of the extremities; Z66 Do not resuscitate; I10 Essential (primary) hypertension; N18.2 Chronic kidney disease, stage 2 (mild); K21.00 Gastro-esophageal reflux disease with esophagitis, without bleeding; D53.9 Nutritional anemia, unspecified; N40.0 Benign prostatic hyperplasia without lower urinary tract symptoms; I12.9 Hypertensive chronic kidney disease with stage 1 through stage 4 chronic kidney disease, or unspecified chronic kidney disease; E83.39 Other disorders of phosphorus metabolism; F03.90 Unspecified dementia, unspecified severity, without behavioral disturbance, psychotic disturbance, mood disturbance, and anxiety; I70.201 Unspecified atherosclerosis of native arteries of extremities, right leg; E86.9 Volume depletion, unspecified; R91.1 Solitary pulmonary nodule; E86.0 Dehydration; E87.6 Hypokalemia; E83.42 Hypomagnesemia; Z95.5 Presence of coronary angioplasty implant and graft; Z86.16 Personal history of COVID-19; Z28.21 Immunization not carried out because of patient refusal; Z79.899 Other long term (current) drug therapy; Z80.8 Family history of malignant neoplasm of other organs or systems; Z79.82 Long term (current) use of aspirin
CPT/HCPCS: 0240U; 36415; 71045; 74177; 75635; 80048; 80053; 81001; 83605; 83690; 83735; 84100; 85025; 87040; 93923; 96365; 96366; 96375; 96376; C9113; G0378; J1644; J2405; J2543; J2765; J3475; J3490; J7050; Q9967

== ENCOUNTER 2021-02-02 19:42 | Emergency (ER) | payer MEDICARE ==
[2021-02-02 22:31] LABS: ALT (SGPT) 8 U/L (8-55); AST (SGOT) 12 U/L (5-34); Albumin 3.8 g/dL (3.4-4.8); Alkaline Phosphatase 78 U/L (40-110); Anion Gap 16 mmol/L (10-20); BUN (Urea Nitrogen) 23 mg/dL (8.4-25.7); Bilirubin, Total 0.5 mg/dL (0.2-1.2); Calc. Creatinine Clearance 0 mL/min (70-130); Calcium 9.6 mg/dL (7.8-10.44); Carbon Dioxide 19 mmol/L (23-31); Chloride 107 mmol/L (98-107); Globulin 3.4 g/dL (2.4-3.5); Glucose 99 mg/dL (83-110); Lipase 44 U/L (8-78); Potassium 3.6 mmol/L (3.5-5.1); Protein, Total 7.2 g/dL (5.8-8.1); Sodium 138 mmol/L (136-145)
[2021-02-02 22:54] LABS: Band 2 % (5-11); Eosinophils 9 % (0-10); Hemoglobin 12.2 g/dL (14.0-18.0); Lymphocytes 18 % (21-51); MDiff Complete? YES; Mean Corpuscular HGB CONC 33.9 g/dL (32.0-36.0); Mean Corpuscular Hemoglobin 30.4 pg (27.0-31.0); Mean Corpuscular Volume 89.6 fL (78.0-98.0); Mean Platelet Volume 7.1 fL (7.4-10.4); Monocytes 14 % (0-10); Neutrophil 56 % (42-75); Platelet Count 242 thou/uL (130-400); Platelet Morphology Comment Appears Adequate; RBC Distribution Width 14.8 % (11.5-14.5); RBC Morphology Normal; Reactive Lymphocytes 1 % (0-10); Red Blood Cell (RBC) Count 4.02 mill/uL (4.70-6.10); White Blood Cell (WBC) Count 4.4 thou/uL (4.8-10.8)
[2021-02-03] MEDS ORDERED: Lorazepam 2 MG/ML VIAL ONE (00:46)
[2021-02-03] MEDS ORDERED: Albuterol 200 PUFF (6.7GM INHALER) ONE (01:07)
[2021-02-03 01:22] LABS: Bacteria/HPF None Seen HPF (None Seen); Bilirubin Negative (Negative); Blood, Urine 3+ (Negative); Clarity Clear (Clear); Glucose, Urine (Dipstick) Normal (Negative); Ketone, Urine Negative (Negative); Leukocyte 250 Leu/uL (Negative); Nitrite Negative (Negative); Protein, Urine (Dipstick) 50 mg/dL (Neg-Trace); RBC/HPF Greater than 50 HPF (0-3); Specific Gravity, Urine 1.025 (1.002-1.036); Squamous Epithelial 0-3 HPF (0-3); Urobilinogen Normal mg/dL (Less than 2); WBC/HPF 21-50 HPF (0-3); pH, Urine 6.5 (5.0-9.0)
[2021-02-03] MEDS ORDERED: Ciprofloxacin 500 MG TAB ONE (02:24)
== END 2021-02-03 02:58 | disposition home or self-care (01) ==
LOC: ERS 19:42
DX: N39.0 Urinary tract infection, site not specified (principal); R31.9 Hematuria, unspecified; I10 Essential (primary) hypertension; Z86.73 Personal history of transient ischemic attack (TIA), and cerebral infarction without residual deficits; Z79.82 Long term (current) use of aspirin; Z79.899 Other long term (current) drug therapy
CPT/HCPCS: 36415; 51703; 71045; 74177; 80053; 81003; 81015; 83690; 85025; 87077; 87086; 87186; 93005; 96374; J2060; Q9967

== ENCOUNTER 2021-04-04 19:11 | Emergency (ER) | payer MEDICARE ==
[~2021-04-04 19:11] MED LIST changes: +Iopamidol 370 76% 100 ML VIAL ONE; -Iopamidol-370 76% 500 ML 1 ML ONE
[2021-04-04 20:27] LABS: #Eosinphils 0.1 thou/uL (0.0-0.7); #Lymphocytes 0.8 thou/uL (1.20-3.40); #Monocytes 0.4 thou/uL (0.11-0.59); %Basophils 0.5 % (0.0-1.0); %Eosinophils 3.3 % (0.0-10.0); %Lymphocytes 23.1 % (21.0-51.0); %Monocytes 13.1 % (0.0-10.0); %Neutrophils 59.9 % (42.0-75.0); Hemoglobin 11.8 g/dL (14.0-18.0); Mean Corpuscular Hemoglobin 30.6 pg (27.0-31.0); Mean Corpuscular Volume 87.4 fL (78.0-98.0); Mean Platelet Volume 6.7 fL (7.4-10.4); Platelet Count 219 thou/uL (130-400); RBC Distribution Width 13.1 % (11.5-14.5); Red Blood Cell (RBC) Count 3.87 mill/uL (4.70-6.10); White Blood Cell (WBC) Count 3.3 thou/uL (4.8-10.8)
[2021-04-04 20:52] LABS: ALT (SGPT) 8 U/L (8-55); AST (SGOT) 16 U/L (5-34); Albumin 3.9 g/dL (3.4-4.8); Alkaline Phosphatase 86 U/L (40-110); Anion Gap 13 mmol/L (10-20); BUN (Urea Nitrogen) 16 mg/dL (8.4-25.7); Bilirubin, Total 0.7 mg/dL (0.2-1.2); CK (CPK) 101 U/L (30-200); Calc. Creatinine Clearance 0 mL/min (70-130); Calcium 9.8 mg/dL (7.8-10.44); Carbon Dioxide 24 mmol/L (23-31); Chloride 100 mmol/L (98-107); Globulin 4.1 g/dL (2.4-3.5); Glucose 112 mg/dL (83-110); Potassium 3.7 mmol/L (3.5-5.1); Sodium 133 mmol/L (136-145)
[2021-04-04 21:10] LABS: Bilirubin Negative (Negative); Blood, Urine Negative (Negative); Clarity Clear (Clear); Glucose, Urine (Dipstick) Normal (Negative); Ketone, Urine Negative (Negative); Leukocyte 75 Leu/uL (Negative); Nitrite Negative (Negative); Protein, Urine (Dipstick) Negative (Neg-Trace); RBC/HPF 0-3 HPF (0-3); Specific Gravity, Urine 1.008 (1.002-1.036); Squamous Epithelial 0-3 HPF (0-3); Urobilinogen Normal mg/dL (Less than 2); WBC/HPF 0-3 HPF (0-3); pH, Urine 5.5 (5.0-9.0)
[2021-04-04 21:11] LABS: Bacteria/HPF 1+ HPF (None Seen)
[2021-04-04] MEDS ORDERED: Gabapentin 300 MG CAP PO SCH (23:30)
== END 2021-04-04 23:34 | disposition home or self-care (01) ==
LOC: ERS 19:11
DX: M79.671 Pain in right foot (principal); I10 Essential (primary) hypertension
CPT/HCPCS: 36415; 36416; 70450; 75635; 80053; 81003; 81015; 82550; 83605; 83880; 84484; 85025; 87086; 93005; Q9967

== ENCOUNTER 2021-06-09 15:17 | Inpatient (IN) | payer MEDICARE ==
[2021-06-09 16:14] LABS: #Eosinphils 0.1 thou/uL (0.0-0.7); #Lymphocytes 0.7 thou/uL (1.20-3.40); #Monocytes 0.4 thou/uL (0.11-0.59); #Neutrophils 2.2 thou/uL (1.40-6.50); %Eosinophils 2.9 % (0.0-10.0); %Lymphocytes 19.4 % (21.0-51.0); %Monocytes 11.3 % (0.0-10.0); %Neutrophils 66.4 % (42.0-75.0); Hemoglobin 8.7 g/dL (14.0-18.0); Mean Corpuscular Hemoglobin 29.9 pg (27.0-31.0); Platelet Count 188 thou/uL (130-400); RBC Distribution Width 13.6 % (11.5-14.5); Red Blood Cell (RBC) Count 2.92 mill/uL (4.70-6.10); White Blood Cell (WBC) Count 3.4 thou/uL (4.8-10.8)
[2021-06-09 16:35] LABS: ALT (SGPT) 8 U/L (8-55); AST (SGOT) 15 U/L (5-34); Albumin 3.8 g/dL (3.4-4.8); Alkaline Phosphatase 74 U/L (40-110); Anion Gap 19 mmol/L (10-20); BUN (Urea Nitrogen) 83 mg/dL (8.4-25.7); Bilirubin, Total 0.4 mg/dL (0.2-1.2); Calc. Creatinine Clearance 0 mL/min (70-130); Calcium 9.9 mg/dL (7.8-10.44); Carbon Dioxide 19 mmol/L (23-31); Chloride 103 mmol/L (98-107); Glucose 125 mg/dL (83-110); Potassium 4.8 mmol/L (3.5-5.1); Protein, Total 7.8 g/dL (5.8-8.1); Sodium 136 mmol/L (136-145)
[2021-06-09 17:54] LABS: Bacteria/HPF 4+ HPF (None Seen); Bilirubin Negative (Negative); Blood, Urine Trace (Negative); Clarity Turbid (Clear); Glucose, Urine (Dipstick) Normal (Negative); Ketone, Urine Negative (Negative); Leukocyte 500 Leu/uL (Negative); Nitrite Negative (Negative); Protein, Urine (Dipstick) 50 mg/dL (Neg-Trace); Specific Gravity, Urine 1.015 (1.002-1.036); Urobilinogen Normal mg/dL (Less than 2); WBC/HPF Greater than 50 HPF (0-3)
[2021-06-09] MEDS ORDERED: cefTRIAXone\\ROCEPHIN 1 GM VIAL ONE (18:53)
[2021-06-09] MEDS ORDERED: Azithromycin 500 MG VIAL ONE (19:22)
[2021-06-09] MEDS ORDERED: Ondansetron PF 4 MG/2 ML Vial IVP PRN (20:07)
[2021-06-09 20:46] LABS: Amphetamine Not Detected (NotDetected); Barbiturates Screen Not Detected (NotDetected); Benzodiazepine Screen Not Detected (NotDetected); Cocaine Metabolite Screen Not Detected (NotDetected); Methadone Not Detected (NotDetected); Methamphetamine Not Detected (NotDetected); Opiate Screen Not Detected (NotDetected); Oxycodone Screen Not Detected (NotDetected); Phencyclidine (PCP) Not Detected (NotDetected); THC/Cannabinoid Screen Not Detected (NotDetected); Tricyclic Screen Not Detected (NotDetected)
[2021-06-09 22:29] LABS: SARS-CoV-2 NAA Rapid Test Not Detected (NotDetected)
[2021-06-09] MEDS: Sodium Chloride 0.9% 1,000 ML IV SCH (22:59)
[2021-06-10 04:51] LABS: #Eosinphils 0.1 thou/uL (0.0-0.7); #Lymphocytes 0.8 thou/uL (1.20-3.40); #Monocytes 0.4 thou/uL (0.11-0.59); #Neutrophils 2.9 thou/uL (1.40-6.50); %Basophils 0.2 % (0.0-1.0); %Eosinophils 2.1 % (0.0-10.0); %Lymphocytes 17.9 % (21.0-51.0); %Monocytes 10.4 % (0.0-10.0); %Neutrophils 69.5 % (42.0-75.0); Hemoglobin 8.1 g/dL (14.0-18.0); Mean Corpuscular HGB CONC 33.5 g/dL (32.0-36.0); Mean Corpuscular Hemoglobin 30.1 pg (27.0-31.0); Mean Corpuscular Volume 89.7 fL (78.0-98.0); Mean Platelet Volume 6.8 fL (7.4-10.4); Platelet Count 160 thou/uL (130-400); RBC Distribution Width 13.5 % (11.5-14.5); White Blood Cell (WBC) Count 4.2 thou/uL (4.8-10.8)
[2021-06-10 05:05] LABS: Iron Binding Capacity, Total 276 mcg/dL (261-462)
[2021-06-10 05:06] LABS: Iron 35 ug/dL (65-175)
[2021-06-10] MEDS: Docusate 100 MG CAP PO SCH ×3 (05:14→21:09)
[2021-06-10 05:20] LABS: Anion Gap 19 mmol/L (10-20); BUN (Urea Nitrogen) 79 mg/dL (8.4-25.7); Calc. Creatinine Clearance 15 mL/min (70-130); Calcium 9.1 mg/dL (7.8-10.44); Carbon Dioxide 17 mmol/L (23-31); Chloride 108 mmol/L (98-107); Glucose 93 mg/dL (83-110); Iron 32 ug/dL (65-175); Iron Binding Capacity, Total 269 mcg/dL (261-462); Potassium 4.6 mmol/L (3.5-5.1); Sodium 139 mmol/L (136-145)
[2021-06-10] MEDS: Sodium Chloride 0.9% 1,000 ML IV SCH (05:35)
[2021-06-10] MEDS ORDERED: Iron, Sodium Ferric Gluconate 250 MG in Sodium Chloride 0.9% 250 ML 250 ML IVPB SCH (14:00)
[2021-06-10 15:41] LABS: #Eosinphils 0.1 thou/uL (0.0-0.7); #Lymphocytes 0.5 thou/uL (1.20-3.40); #Monocytes 0.3 thou/uL (0.11-0.59); #Neutrophils 2.4 thou/uL (1.40-6.50); %Eosinophils 1.8 % (0.0-10.0); %Lymphocytes 14.7 % (21.0-51.0); %Monocytes 9.4 % (0.0-10.0); %Neutrophils 73.1 % (42.0-75.0); Hemoglobin 7.1 g/dL (14.0-18.0); Mean Corpuscular HGB CONC 32.8 g/dL (32.0-36.0); Mean Corpuscular Hemoglobin 29.9 pg (27.0-31.0); Mean Corpuscular Volume 91.3 fL (78.0-98.0); Mean Platelet Volume 7.1 fL (7.4-10.4); Platelet Count 161 thou/uL (130-400); RBC Distribution Width 13.4 % (11.5-14.5); Red Blood Cell (RBC) Count 2.38 mill/uL (4.70-6.10); White Blood Cell (WBC) Count 3.3 thou/uL (4.8-10.8)
[2021-06-10 16:24] LABS: Creatinine, Urine 60.26 mg/dL (63-166)
[2021-06-10] MEDS: Sodium Bicarbonate 150 MEQ in Dextrose 5% in Water 1,000 ML IV SCH (16:44)
[2021-06-10] MEDS: Acetaminophen 325 MG TAB PO PRN (17:18)
[2021-06-10] MEDS ORDERED: cefTRIAXone\\ROCEPHIN 1 GM in Sodium Chloride 0.9% 100 ML IVPB SCH (19:00)
[2021-06-10] MEDS ORDERED: Azithromycin 500 MG in Sodium Chloride 0.9% 250 ML 250 ML IVPB SCH (20:00)
[2021-06-11 05:34] LABS: #Lymphocytes 0.7 thou/uL (1.20-3.40); #Monocytes 0.6 thou/uL (0.11-0.59); %Eosinophils 0.8 % (0.0-10.0); %Lymphocytes 13.1 % (21.0-51.0); %Monocytes 11.5 % (0.0-10.0); %Neutrophils 74.7 % (42.0-75.0); Hemoglobin 8.1 g/dL (14.0-18.0); Mean Corpuscular HGB CONC 33.4 g/dL (32.0-36.0); Mean Corpuscular Hemoglobin 29.7 pg (27.0-31.0); Mean Corpuscular Volume 88.8 fL (78.0-98.0); Mean Platelet Volume 7.1 fL (7.4-10.4); Platelet Count 146 thou/uL (130-400); RBC Distribution Width 13.4 % (11.5-14.5); Red Blood Cell (RBC) Count 2.71 mill/uL (4.70-6.10); White Blood Cell (WBC) Count 5.3 thou/uL (4.8-10.8)
[2021-06-11 05:55] LABS: Albumin 3.2 g/dL (3.4-4.8); Anion Gap 14 mmol/L (10-20); BUN (Urea Nitrogen) 52 mg/dL (8.4-25.7); BUN/Creatinine Ratio 20.23; Calc. Creatinine Clearance 25 mL/min (70-130); Calcium 9.1 mg/dL (7.8-10.44); Carbon Dioxide 18 mmol/L (23-31); Chloride 109 mmol/L (98-107); Glucose 107 mg/dL (83-110); Phosphorus 3.5 mg/dL (2.3-4.7); Potassium 4.4 mmol/L (3.5-5.1); Sodium 137 mmol/L (136-145)
[2021-06-11] MEDS: Docusate 100 MG CAP PO SCH ×2 (10:17→20:50)
[2021-06-11] MEDS: Iron, Sodium Ferric Gluconate 250 MG in Sodium Chloride 0.9% 250 ML 250 ML IVPB SCH (10:17)
[2021-06-11] MEDS: Acetaminophen 325 MG TAB PO PRN (10:32)
[2021-06-11] MEDS: Sodium Bicarbonate 150 MEQ in Dextrose 5% in Water 1,000 ML IV SCH (14:46)
[2021-06-11] MEDS ORDERED: Oxybutynin 5 MG TAB PO SCH (17:45)
[2021-06-11] MEDS ORDERED: Meropenem 1 GM in Sodium Chloride 0.9% 100 ML IVPB SCH (17:45)
[2021-06-11] MEDS ORDERED: Amlodipine 10 MG TAB PO SCH (17:45)
[2021-06-11] MEDS: Senokot 8.6 MG TAB PO SCH (20:50)
[2021-06-11] MEDS: HYDROcodone/Acetaminophen 5/325 mg Tablet PO PRN (20:50)
[2021-06-11] MEDS ORDERED: Meropenem 500 MG in Sodium Chloride 0.9% 100 ML IVPB SCH (22:00)
[2021-06-12] MEDS ORDERED: Meropenem 500 MG in Sodium Chloride 0.9% 100 ML IVPB SCH (02:00)
[2021-06-12 04:01] LABS: #Eosinphils 0.1 thou/uL (0.0-0.7); #Lymphocytes 0.6 thou/uL (1.20-3.40); #Monocytes 0.5 thou/uL (0.11-0.59); #Neutrophils 3.2 thou/uL (1.40-6.50); %Eosinophils 2.9 % (0.0-10.0); %Lymphocytes 12.7 % (21.0-51.0); %Monocytes 11.9 % (0.0-10.0); %Neutrophils 72.5 % (42.0-75.0); Hemoglobin 8.7 g/dL (14.0-18.0); Mean Corpuscular HGB CONC 33.2 g/dL (32.0-36.0); Mean Corpuscular Hemoglobin 29.4 pg (27.0-31.0); Mean Corpuscular Volume 88.5 fL (78.0-98.0); Platelet Count 129 thou/uL (130-400); RBC Distribution Width 13.3 % (11.5-14.5); Red Blood Cell (RBC) Count 2.95 mill/uL (4.70-6.10); White Blood Cell (WBC) Count 4.4 thou/uL (4.8-10.8)
[2021-06-12 04:30] LABS: Albumin 3.3 g/dL (3.4-4.8); Anion Gap 12 mmol/L (10-20); BUN (Urea Nitrogen) 33 mg/dL (8.4-25.7); BUN/Creatinine Ratio 16.58; Calc. Creatinine Clearance 32 mL/min (70-130); Calcium 9.6 mg/dL (7.8-10.44); Carbon Dioxide 27 mmol/L (23-31); Chloride 105 mmol/L (98-107); Glucose 90 mg/dL (83-110); Phosphorus 2.8 mg/dL (2.3-4.7); Potassium 3.7 mmol/L (3.5-5.1); Sodium 140 mmol/L (136-145)
[2021-06-12] MEDS: Iron, Sodium Ferric Gluconate 250 MG in Sodium Chloride 0.9% 250 ML 250 ML IVPB SCH (08:45)
[2021-06-12] MEDS: Docusate 100 MG CAP PO SCH ×2 (08:45→20:22)
[2021-06-12] MEDS: Amlodipine 10 MG TAB PO SCH (08:46)
[2021-06-12] MEDS: Oxybutynin 5 MG TAB PO SCH (08:46)
[2021-06-12] MEDS: Megestrol Acetate 800 MG/20 ML UDCUP PO SCH (09:35)
[2021-06-12] MEDS: Lactated Ringer's 1,000 ML IV SCH (09:38)
[2021-06-12 13:09] VITALS: BMI 22.4
[2021-06-12] MEDS: Meropenem 1 GM in Sodium Chloride 0.9% 100 ML IVPB SCH (13:59)
[2021-06-12 14:10] LABS: Albumin (w/Testosterone Panel) 3.1 g/dL
[2021-06-12 14:36] LABS: Sex Hormone Binding Globulin 52.3 nmol/L (11-78); Testosterone, Free 2.6 pg/mL (47-244); Testosterone, Total 18.2 ng/dL (221-716)
[2021-06-12] MEDS: Senokot 8.6 MG TAB PO SCH (20:22)
[2021-06-13] MEDS: Lactated Ringer's 1,000 ML IV SCH ×3 (01:38→17:58)
[2021-06-13] MEDS: Meropenem 1 GM in Sodium Chloride 0.9% 100 ML IVPB SCH ×2 (01:38→15:38)
[2021-06-13 05:00] LABS: Albumin (w/Testosterone Panel) 3.3 g/dL
[2021-06-13 05:13] LABS: Albumin 3.2 g/dL (3.4-4.8); Anion Gap 13 mmol/L (10-20); BUN (Urea Nitrogen) 21 mg/dL (8.4-25.7); BUN/Creatinine Ratio 13.38; Calc. Creatinine Clearance 41 mL/min (70-130); Calcium 9.2 mg/dL (7.8-10.44); Carbon Dioxide 22 mmol/L (23-31); Chloride 108 mmol/L (98-107); Glucose 91 mg/dL (83-110); Phosphorus 1.5 mg/dL (2.3-4.7); Potassium 3.7 mmol/L (3.5-5.1); Sodium 139 mmol/L (136-145)
[2021-06-13 05:23] LABS: Testosterone, Total 22.4 ng/dL (221-716)
[2021-06-13 05:24] LABS: Sex Hormone Binding Globulin 59.8 nmol/L (11-78); Testosterone, Free 2.9 pg/mL (47-244)
[2021-06-13] MEDS: Amlodipine 10 MG TAB PO SCH (08:13)
[2021-06-13] MEDS: Docusate 100 MG CAP PO SCH ×2 (08:14→20:54)
[2021-06-13] MEDS: Oxybutynin 5 MG TAB PO SCH (08:14)
[2021-06-13] MEDS: Megestrol Acetate 800 MG/20 ML UDCUP PO SCH (08:14)
[2021-06-13] MEDS ORDERED: Potassium Phosphate 22 MMOL in Sodium Chloride 0.9% 250 ML 250 ML IVPB SCH (12:00)
[2021-06-13] MEDS: Senokot 8.6 MG TAB PO SCH (20:54)
[2021-06-14] MEDS: HYDROcodone/Acetaminophen 5/325 mg Tablet PO PRN (01:50)
[2021-06-14] MEDS: Meropenem 1 GM in Sodium Chloride 0.9% 100 ML IVPB SCH ×2 (01:51→13:44)
[2021-06-14] MEDS: Lactated Ringer's 1,000 ML IV SCH ×3 (01:54→22:46)
[2021-06-14 05:27] LABS: Albumin 2.9 g/dL (3.4-4.8); Anion Gap 10 mmol/L (10-20); BUN (Urea Nitrogen) 14 mg/dL (8.4-25.7); BUN/Creatinine Ratio 9.79; Calc. Creatinine Clearance 45 mL/min (70-130); Carbon Dioxide 19 mmol/L (23-31); Chloride 112 mmol/L (98-107); Glucose 100 mg/dL (83-110); Magnesium 1.5 mg/dL (1.6-2.6); Potassium 4.1 mmol/L (3.5-5.1); Sodium 137 mmol/L (136-145)
[2021-06-14 05:33] LABS: Phosphorus 1.8 mg/dL (2.3-4.7)
[2021-06-14] MEDS ORDERED: Electrolyte Replacement Protocol 1 EACH FS PRN (06:06)
[2021-06-14] MEDS ORDERED: Potassium Phosphate 15 MMOL in Sodium Chloride 0.9% 250 ML 250 ML IVPB SCH (06:15)
[2021-06-14] MEDS ORDERED: Magnesium 2 GM/50 ML 2 GM in Premix Bag 1 BAG IVPB SCH (06:15)
[2021-06-14] MEDS: Sodium Bicarbonate Tab 325 MG TAB PO SCH ×3 (09:18→21:37)
[2021-06-14] MEDS: Docusate 100 MG CAP PO SCH ×2 (09:18→21:37)
[2021-06-14] MEDS: Oxybutynin 5 MG TAB PO SCH (09:18)
[2021-06-14] MEDS: Amlodipine 10 MG TAB PO SCH (09:18)
[2021-06-14] MEDS: Megestrol Acetate 800 MG/20 ML UDCUP PO SCH (09:19)
[2021-06-14] MEDS: Senokot 8.6 MG TAB PO SCH (21:37)
[2021-06-15] MEDS: Meropenem 1 GM in Sodium Chloride 0.9% 100 ML IVPB SCH ×2 (02:07→15:48)
[2021-06-15 04:23] LABS: Albumin 3.2 g/dL (3.4-4.8); Anion Gap 10 mmol/L (10-20); BUN (Urea Nitrogen) 10 mg/dL (8.4-25.7); BUN/Creatinine Ratio 7.52; Calc. Creatinine Clearance 48 mL/min (70-130); Calcium 9.1 mg/dL (7.8-10.44); Carbon Dioxide 18 mmol/L (23-31); Chloride 110 mmol/L (98-107); Glucose 79 mg/dL (83-110); Potassium 4.2 mmol/L (3.5-5.1); Sodium 134 mmol/L (136-145)
[2021-06-15] MEDS: PHOS-NAK 1 PKT PACK PO SCH ×2 (06:48→12:00)
[2021-06-15] MEDS: Amlodipine 10 MG TAB PO SCH (09:15)
[2021-06-15] MEDS: Docusate 100 MG CAP PO SCH ×2 (09:15→21:11)
[2021-06-15] MEDS: Megestrol Acetate 800 MG/20 ML UDCUP PO SCH (09:16)
[2021-06-15] MEDS: Oxybutynin 5 MG TAB PO SCH (09:16)
[2021-06-15] MEDS: Sodium Bicarbonate Tab 325 MG TAB PO SCH ×3 (09:19→21:11)
[2021-06-15 10:57] LABS: Magnesium 2.1 mg/dL (1.6-2.6)
[2021-06-15] MEDS ORDERED: PHOS-NAK 1 PKT PACK PO SCH (12:00)
[2021-06-15] MEDS: Senokot 8.6 MG TAB PO SCH (21:11)
[2021-06-16] MEDS: Meropenem 1 GM in Sodium Chloride 0.9% 100 ML IVPB SCH ×2 (02:00→17:24)
[2021-06-16 04:43] LABS: #Eosinphils 0.1 thou/uL (0.0-0.7); #Lymphocytes 0.7 thou/uL (1.20-3.40); #Monocytes 0.5 thou/uL (0.11-0.59); #Neutrophils 2.6 thou/uL (1.40-6.50); %Basophils 0.1 % (0.0-1.0); %Eosinophils 3.5 % (0.0-10.0); %Lymphocytes 17.8 % (21.0-51.0); %Monocytes 12.1 % (0.0-10.0); %Neutrophils 66.6 % (42.0-75.0); Hemoglobin 7.8 g/dL (14.0-18.0); Mean Corpuscular HGB CONC 32.8 g/dL (32.0-36.0); Mean Corpuscular Hemoglobin 29.9 pg (27.0-31.0); Mean Corpuscular Volume 91.4 fL (78.0-98.0); Mean Platelet Volume 6.4 fL (7.4-10.4); Platelet Count 187 thou/uL (130-400); RBC Distribution Width 14.2 % (11.5-14.5); White Blood Cell (WBC) Count 3.9 thou/uL (4.8-10.8)
[2021-06-16 05:12] LABS: Albumin 3.2 g/dL (3.4-4.8); Anion Gap 10 mmol/L (10-20); BUN (Urea Nitrogen) 11 mg/dL (8.4-25.7); BUN/Creatinine Ratio 8.03; Calc. Creatinine Clearance 47 mL/min (70-130); Calcium 9.3 mg/dL (7.8-10.44); Carbon Dioxide 17 mmol/L (23-31); Chloride 109 mmol/L (98-107); Glucose 86 mg/dL (83-110); Potassium 4.1 mmol/L (3.5-5.1); Sodium 132 mmol/L (136-145)
[2021-06-16] MEDS: PHOS-NAK 1 PKT PACK PO SCH ×2 (06:43→09:51)
[2021-06-16] MEDS: Oxybutynin 5 MG TAB PO SCH (09:44)
[2021-06-16] MEDS: Docusate 100 MG CAP PO SCH ×2 (09:44→21:30)
[2021-06-16] MEDS: Megestrol Acetate 800 MG/20 ML UDCUP PO SCH (09:44)
[2021-06-16] MEDS: Amlodipine 10 MG TAB PO SCH (09:44)
[2021-06-16] MEDS: Sodium Bicarbonate Tab 325 MG TAB PO SCH ×3 (09:45→21:30)
[2021-06-16] MEDS ORDERED: Fentanyl 100 MCG/2 ML VIAL ONE ×2 (14:16→16:22)
[2021-06-16] MEDS ORDERED: Iothalamate Meglumine 60% 50 ML VIAL FS ONE (14:16)
[2021-06-16] MEDS ORDERED: Glycopyrrolate 0.2 MG/ML 5 ML SYRINGE ONE (14:43)
[2021-06-16] MEDS ORDERED: ePHEDrine 50 MG/ML VIAL ONE (14:43)
[2021-06-16] MEDS ORDERED: PROPOFOL 200 MG/20 ML VIAL ONE (14:43)
[2021-06-16] MEDS ORDERED: Promethazine HCl 25 MG/ML VIAL IVPB PRN (15:57)
[2021-06-16] MEDS ORDERED: Promethazine HCl 25 MG/ML VIAL IM PRN (15:57)
[2021-06-16] MEDS ORDERED: Ondansetron HCl/PF 4 MG/2 ML Vial IVP PRN (15:57)
[2021-06-16] MEDS: Ferrous Sulfate 325 MG TAB PO SCH (17:24)
[2021-06-16] MEDS: Senokot 8.6 MG TAB PO SCH (21:30)
[2021-06-17] MEDS: Meropenem 1 GM in Sodium Chloride 0.9% 100 ML IVPB SCH ×2 (02:30→15:25)
[2021-06-17 04:58] LABS: #Eosinphils 0.1 thou/uL (0.0-0.7); #Lymphocytes 0.7 thou/uL (1.20-3.40); #Monocytes 0.6 thou/uL (0.11-0.59); #Neutrophils 2.9 thou/uL (1.40-6.50); %Basophils 0.1 % (0.0-1.0); %Eosinophils 3.5 % (0.0-10.0); %Lymphocytes 15.8 % (21.0-51.0); %Neutrophils 66.6 % (42.0-75.0); Hemoglobin 8.3 g/dL (14.0-18.0); Mean Corpuscular HGB CONC 32.6 g/dL (32.0-36.0); Mean Corpuscular Hemoglobin 30.3 pg (27.0-31.0); Mean Corpuscular Volume 92.9 fL (78.0-98.0); Mean Platelet Volume 6.5 fL (7.4-10.4); Platelet Count 225 thou/uL (130-400); RBC Distribution Width 14.7 % (11.5-14.5); Red Blood Cell (RBC) Count 2.73 mill/uL (4.70-6.10); White Blood Cell (WBC) Count 4.3 thou/uL (4.8-10.8)
[2021-06-17 05:20] LABS: Albumin 3.4 g/dL (3.4-4.8); Anion Gap 13 mmol/L (10-20); BUN (Urea Nitrogen) 11 mg/dL (8.4-25.7); Calc. Creatinine Clearance 49 mL/min (70-130); Calcium 9.2 mg/dL (7.8-10.44); Carbon Dioxide 16 mmol/L (23-31); Chloride 107 mmol/L (98-107); Glucose 77 mg/dL (83-110); Phosphorus 2.1 mg/dL (2.3-4.7); Potassium 4.2 mmol/L (3.5-5.1); Sodium 132 mmol/L (136-145)
[2021-06-17] MEDS: Ferrous Sulfate 325 MG TAB PO SCH ×2 (08:53→17:54)
[2021-06-17] MEDS: Oxybutynin 5 MG TAB PO SCH (09:12)
[2021-06-17] MEDS: Megestrol Acetate 800 MG/20 ML UDCUP PO SCH (09:12)
[2021-06-17] MEDS: Amlodipine 10 MG TAB PO SCH (09:12)
[2021-06-17] MEDS: Sodium Bicarbonate Tab 325 MG TAB PO SCH ×3 (09:12→20:12)
[2021-06-17] MEDS: Docusate 100 MG CAP PO SCH ×2 (09:12→20:13)
[2021-06-17] MEDS: Senokot 8.6 MG TAB PO SCH (20:12)
[2021-06-18] MEDS: Meropenem 1 GM in Sodium Chloride 0.9% 100 ML IVPB SCH ×2 (01:21→14:11)
[2021-06-18 08:05] LABS: #Eosinphils 0.1 thou/uL (0.0-0.7); #Lymphocytes 0.6 thou/uL (1.20-3.40); #Monocytes 0.5 thou/uL (0.11-0.59); #Neutrophils 2.3 thou/uL (1.40-6.50); %Basophils 0.3 % (0.0-1.0); %Eosinophils 3.1 % (0.0-10.0); %Lymphocytes 16.9 % (21.0-51.0); %Monocytes 13.4 % (0.0-10.0); %Neutrophils 66.3 % (42.0-75.0); Hemoglobin 7.7 g/dL (14.0-18.0); Mean Corpuscular HGB CONC 32.6 g/dL (32.0-36.0); Mean Corpuscular Hemoglobin 30.1 pg (27.0-31.0); Mean Corpuscular Volume 92.5 fL (78.0-98.0); Mean Platelet Volume 6.4 fL (7.4-10.4); Platelet Count 255 thou/uL (130-400); Red Blood Cell (RBC) Count 2.56 mill/uL (4.70-6.10); White Blood Cell (WBC) Count 3.4 thou/uL (4.8-10.8)
[2021-06-18 08:26] LABS: Albumin 3.3 g/dL (3.4-4.8); Anion Gap 11 mmol/L (10-20); BUN (Urea Nitrogen) 10 mg/dL (8.4-25.7); Calc. Creatinine Clearance 53 mL/min (70-130); Calcium 9.3 mg/dL (7.8-10.44); Carbon Dioxide 20 mmol/L (23-31); Chloride 107 mmol/L (98-107); Glucose 87 mg/dL (83-110); Phosphorus 1.6 mg/dL (2.3-4.7); Potassium 3.9 mmol/L (3.5-5.1); Sodium 134 mmol/L (136-145)
[2021-06-18] MEDS ORDERED: Magnesium 2 GM/50 ML 2 GM in Premix Bag 1 BAG IVPB SCH (09:00)
[2021-06-18] MEDS: Docusate 100 MG CAP PO SCH ×2 (09:03→20:35)
[2021-06-18] MEDS: Megestrol Acetate 800 MG/20 ML UDCUP PO SCH (09:03)
[2021-06-18] MEDS: Ferrous Sulfate 325 MG TAB PO SCH ×2 (09:03→16:55)
[2021-06-18] MEDS: Amlodipine 10 MG TAB PO SCH (09:04)
[2021-06-18] MEDS: Sodium Bicarbonate Tab 325 MG TAB PO SCH ×3 (09:04→20:35)
[2021-06-18] MEDS: PHOS-NAK 1 PKT PACK PO SCH ×2 (09:09→13:46)
[2021-06-18] MEDS: Oxybutynin 5 MG TAB PO SCH (09:09)
[2021-06-18] MEDS ORDERED: Potassium Phosphate 15 MMOL in Sodium Chloride 0.9% 100 ML IVPB SCH (11:45)
[2021-06-18] MEDS: Senokot 8.6 MG TAB PO SCH (20:35)
[2021-06-18] MEDS: HYDROcodone/Acetaminophen 5/325 mg Tablet PO PRN (20:42)
[2021-06-18 23:04] LABS: SARS-CoV-2 PCR by NAA Not Detected (NotDetected)
[2021-06-19] MEDS: Meropenem 1 GM in Sodium Chloride 0.9% 100 ML IVPB SCH ×2 (01:08→14:01)
[2021-06-19 07:56] LABS: #Eosinphils 0.1 thou/uL (0.0-0.7); #Lymphocytes 0.5 thou/uL (1.20-3.40); #Monocytes 0.4 thou/uL (0.11-0.59); %Basophils 0.3 % (0.0-1.0); %Eosinophils 2.4 % (0.0-10.0); %Lymphocytes 17.3 % (21.0-51.0); %Monocytes 13.4 % (0.0-10.0); %Neutrophils 66.7 % (42.0-75.0); Hemoglobin 7.6 g/dL (14.0-18.0); Mean Corpuscular HGB CONC 33.4 g/dL (32.0-36.0); Mean Platelet Volume 6.2 fL (7.4-10.4); Platelet Count 260 thou/uL (130-400); RBC Distribution Width 14.7 % (11.5-14.5); Red Blood Cell (RBC) Count 2.53 mill/uL (4.70-6.10)
[2021-06-19] MEDS: Sodium Bicarbonate Tab 325 MG TAB PO SCH ×2 (08:17→14:03)
[2021-06-19] MEDS: Megestrol Acetate 800 MG/20 ML UDCUP PO SCH (08:17)
[2021-06-19] MEDS: Oxybutynin 5 MG TAB PO SCH (08:18)
[2021-06-19] MEDS: Docusate 100 MG CAP PO SCH (08:18)
[2021-06-19] MEDS: Ferrous Sulfate 325 MG TAB PO SCH ×2 (08:18→16:50)
[2021-06-19] MEDS: Amlodipine 10 MG TAB PO SCH (08:18)
[2021-06-19 08:24] LABS: Anion Gap 11 mmol/L (10-20); BUN (Urea Nitrogen) 13 mg/dL (8.4-25.7); Calc. Creatinine Clearance 54 mL/min (70-130); Calcium 9.1 mg/dL (7.8-10.44); Carbon Dioxide 22 mmol/L (23-31); Chloride 108 mmol/L (98-107); Glucose 124 mg/dL (83-110); Magnesium 2.2 mg/dL (1.6-2.6); Potassium 4.1 mmol/L (3.5-5.1); Sodium 137 mmol/L (136-145)
[2021-06-19 08:45] VITALS: BP 137/65; TEMP 98
[2021-06-19] MEDS: PHOS-NAK 1 PKT PACK PO SCH ×2 (09:37→14:00)
== END 2021-06-19 17:49 | disposition home or self-care (01) | DRG 853 ==
LOC: ERS 15:17 → 2NO 20:01 → T4-B 06-17 09:33
PROVIDERS: ADMIT Internal Medicine; ATTEND Hospitalist
PROC: 30233N1 Transfusion of Nonautologous Red Blood Cells into Peripheral Vein, Percutaneous Approach (ICD-10-PCS; 2021-06-10)
PROC: 0W3R8ZZ Control Bleeding in Genitourinary Tract, Via Natural or Artificial Opening Endoscopic (ICD-10-PCS; principal; 2021-06-16)
PROC: 0TCB8ZZ Extirpation of Matter from Bladder, Via Natural or Artificial Opening Endoscopic (ICD-10-PCS; 2021-06-16)
PROC: 3E1K78Z Irrigation of Genitourinary Tract using Irrigating Substance, Via Natural or Artificial Opening (ICD-10-PCS; 2021-06-16)
DX: A41.89 Other specified sepsis (principal); G93.41 Metabolic encephalopathy; J18.9 Pneumonia, unspecified organism; N30.41 Irradiation cystitis with hematuria; T83.83XA Hemorrhage due to genitourinary prosthetic devices, implants and grafts, initial encounter; I69.151 Hemiplegia and hemiparesis following nontraumatic intracerebral hemorrhage affecting right dominant side; N17.9 Acute kidney failure, unspecified; D62 Acute posthemorrhagic anemia; E87.2 Acidosis; I13.0 Hypertensive heart and chronic kidney disease with heart failure and stage 1 through stage 4 chronic kidney disease, or unspecified chronic kidney disease; E87.1 Hypo-osmolality and hyponatremia; Z16.24 Resistance to multiple antibiotics; Z20.822 Contact with and (suspected) exposure to COVID-19; Y84.2 Radiological procedure and radiotherapy as the cause of abnormal reaction of the patient, or of later complication, without mention of misadventure at the time of the procedure; C61 Malignant neoplasm of prostate; N40.0 Benign prostatic hyperplasia without lower urinary tract symptoms; I50.9 Heart failure, unspecified; R00.1 Bradycardia, unspecified; I73.9 Peripheral vascular disease, unspecified; D63.1 Anemia in chronic kidney disease; I08.3 Combined rheumatic disorders of mitral, aortic and tricuspid valves; E86.9 Volume depletion, unspecified; N18.30 Chronic kidney disease, stage 3 unspecified; D50.9 Iron deficiency anemia, unspecified; M79.671 Pain in right foot; I25.10 Atherosclerotic heart disease of native coronary artery without angina pectoris; E86.0 Dehydration; E87.6 Hypokalemia; K59.00 Constipation, unspecified; T46.4X5A Adverse effect of angiotensin-converting-enzyme inhibitors, initial encounter; T50.1X5A Adverse effect of loop [high-ceiling] diuretics, initial encounter; Y84.6 Urinary catheterization as the cause of abnormal reaction of the patient, or of later complication, without mention of misadventure at the time of the procedure; E83.39 Other disorders of phosphorus metabolism; E83.42 Hypomagnesemia; Z79.899 Other long term (current) drug therapy; Z79.82 Long term (current) use of aspirin; Z95.5 Presence of coronary angioplasty implant and graft; Z95.1 Presence of aortocoronary bypass graft
CPT/HCPCS: 36415; 36430; 51701; 70450; 71045; 74176; 76770; 80048; 80053; 80069; 80306; 81003; 81015; 82140; 82274; 82550; 82570; 82728; 83540; 83550; 83605; 83735; 83880; 84100; 84153; 84156; 84270; 84300; 84403; 84443; 84484; 84540; 85014; 85018; 85025; 86850; 86900; 86901; 87040; 87077; 87086; 87186; 93005; 93010; 93306; 95816; 95819; 95957; 96365; 96367; J0456; J0696; J2185; J2704; J2916; J3010; J3475; J3490; J7050; J7070; J7120; P9016; Q9961-U8; U0002; U0003; U0005

== ENCOUNTER 2022-06-04 14:36 | Inpatient (IN) | payer MEDICARE ==
[2022-06-04] MEDS ORDERED: Electrolyte Replacement Protocol 1 EACH FS ONE (17:03)
[2022-06-04] MEDS ORDERED: Electrolyte Replacement Protocol FS PRN (17:15)
[2022-06-04] MEDS ORDERED: Sodium Chloride 0.9% 1,000 ML IV SCH (17:15)
[2022-06-04] MEDS ORDERED: FLU VACC QS2022-23(65YR UP)/PF 240 MCG/0.7 ML SYRINGE IM ONE (18:15)
[2022-06-04] MEDS: Lactated Ringer's 1,000 ML IV SCH (18:48)
[2022-06-04] MEDS: Rosuvastatin 10 MG TAB PO SCH (21:30)
[2022-06-04] MEDS: Acetaminophen 650 MG Suppository PR PRN (22:51)
[2022-06-05] MEDS: Acetaminophen 650 MG Suppository PR PRN (05:21)
[2022-06-05] MEDS: Lactated Ringer's 1,000 ML IV SCH ×2 (07:14→21:16)
[2022-06-05] MEDS: Carvedilol 6.25 MG TAB PO SCH ×2 (08:11→17:20)
[2022-06-05] MEDS: Aspirin 81 mg Enteric Coated Tablet PO SCH ×2 (08:11→12:46)
[2022-06-05 08:53] LABS: #Lymphocytes 0.6 thou/uL (1.20-3.40); #Monocytes 0.8 thou/uL (0.11-0.59); #Neutrophils 5.4 thou/uL (1.40-6.50); %Eosinophils 0.1 % (0.0-10.0); %Lymphocytes 8.3 % (21.0-51.0); %Monocytes 11.2 % (0.0-10.0); %Neutrophils 80.4 % (42.0-75.0); Mean Corpuscular HGB CONC 32.2 g/dL (32.0-36.0); Mean Corpuscular Hemoglobin 30.2 pg (27.0-31.0); Mean Corpuscular Volume 93.8 fl (78.0-98.0); Mean Platelet Volume 7.6 fL (7.4-10.4); Platelet Count 163 10x3/uL (130-400); RBC Distribution Width 13.6 % (11.5-14.5); Red Blood Cell (RBC) Count 2.98 mill/uL (4.70-6.10); White Blood Cell (WBC) Count 6.7 10x3/uL (4.8-10.8)
[2022-06-05 09:18] LABS: ALT (SGPT) 37 U/L (8-55); AST (SGOT) 80 U/L (5-34); Albumin 2.1 g/dL (3.4-4.8); Alkaline Phosphatase 88 U/L (40-110); Anion Gap 12 mmol/L (10-20); BUN (Urea Nitrogen) 13 mg/dL (8.4-25.7); Bilirubin, Total 1.2 mg/dL (0.2-1.2); Calc. Creatinine Clearance 0 mL/min (70-130); Calcium 8.1 mg/dL (7.8-10.44); Carbon Dioxide 22 mmol/L (23-31); Chloride 102 mmol/L (98-107); Estimated GFR 95; Globulin 3.3 g/dL (2.4-3.5); Glucose 105 mg/dL (83-110); Magnesium 1.7 mg/dL (1.6-2.6); Phosphorus 2.2 mg/dL (2.3-4.7); Potassium 3.1 mmol/L (3.5-5.1); Protein, Total 5.4 g/dL (5.8-8.1); Sodium 133 mmol/L (136-145)
[2022-06-05] MEDS ORDERED: Magnesium 2 GM/50 ML(in water) 2 GM in Premix Bag 1 BAG IVPB SCH (10:00)
[2022-06-05] MEDS ORDERED: Potassium Chloride 20 MEQ TAB PO SCH (10:00)
[2022-06-05] MEDS ORDERED: Piperacillin/Tazobactam 3.375 GM in Sodium Chloride 0.9% 100 ML IVPB SCH (14:00)
[2022-06-05 16:24] VITALS: BMI 21.7
[2022-06-05] MEDS: Vancomycin 1 GM in Premix Bag 1 BAG IVPB SCH (17:18)
[2022-06-05] MEDS ORDERED: VANCOMYCIN 1.25 GM/250 ML BAG IVPB SCH (21:00)
[2022-06-05] MEDS: Piperacillin/Tazobactam 3.375 GM in Sodium Chloride 0.9% 100 ML IVPB SCH (21:13)
[2022-06-05] MEDS: Rosuvastatin 10 MG TAB PO SCH (21:13)
[2022-06-06] MEDS: Vancomycin 1 GM in Premix Bag 1 BAG IVPB SCH ×2 (03:59→17:45)
[2022-06-06] MEDS: Lactated Ringer's 1,000 ML IV SCH ×3 (04:01→21:06)
[2022-06-06] MEDS: Piperacillin/Tazobactam 3.375 GM in Sodium Chloride 0.9% 100 ML IVPB SCH ×3 (05:45→21:06)
[2022-06-06] MEDS: Aspirin 81 mg Enteric Coated Tablet PO SCH (09:54)
[2022-06-06] MEDS: Carvedilol 6.25 MG TAB PO SCH ×2 (09:54→16:39)
[2022-06-06] MEDS: Acetaminophen 650 MG Suppository PR PRN (18:36)
[2022-06-06] MEDS: Rosuvastatin 10 MG TAB PO SCH (21:07)
[2022-06-07] MEDS: Vancomycin 1 GM in Premix Bag 1 BAG IVPB SCH ×2 (03:52→05:19)
[2022-06-07] MEDS: Piperacillin/Tazobactam 3.375 GM in Sodium Chloride 0.9% 100 ML IVPB SCH ×3 (05:49→21:25)
[2022-06-07] MEDS: Carvedilol 6.25 MG TAB PO SCH ×2 (08:41→17:59)
[2022-06-07] MEDS: Aspirin 81 mg Enteric Coated Tablet PO SCH (08:42)
[2022-06-07 09:58] LABS: INR-International Normal Ratio 1.1; Prothrombin Time 14.6 sec (12.0-14.7)
[2022-06-07 09:59] LABS: PTT 44.2 sec (22.9-36.1)
[2022-06-07] MEDS: Morphine 2 MG/ML VIAL SLOW IVP PRN (14:59)
[2022-06-07] MEDS: VANCOMYCIN 1.25 GM/250 ML BAG 1.25 GM in Premix Bag 1 BAG IVPB SCH (17:58)
[2022-06-07] MEDS: Rosuvastatin 10 MG TAB PO SCH (21:25)
[2022-06-07] MEDS: Lactated Ringer's 1,000 ML IV SCH (22:11)
[2022-06-08] MEDS: Lactated Ringer's 1,000 ML IV SCH ×3 (01:30→20:38)
[2022-06-08] MEDS: Morphine 2 MG/ML VIAL SLOW IVP PRN ×2 (05:00→20:39)
[2022-06-08] MEDS: Piperacillin/Tazobactam 3.375 GM in Sodium Chloride 0.9% 100 ML IVPB SCH ×3 (05:00→20:38)
[2022-06-08 06:27] LABS: #Lymphocytes 0.3 thou/uL (1.20-3.40); #Monocytes 0.3 thou/uL (0.11-0.59); #Neutrophils 3.6 thou/uL (1.40-6.50); %Eosinophils 0.6 % (0.0-10.0); %Monocytes 6.5 % (0.0-10.0); Hemoglobin 8.1 g/dL (14.0-18.0); Mean Corpuscular HGB CONC 32.2 g/dL (32.0-36.0); Mean Corpuscular Hemoglobin 30.3 pg (27.0-31.0); Mean Corpuscular Volume 94.2 fl (78.0-98.0); Mean Platelet Volume 8.7 fL (7.4-10.4); Platelet Count 159 10x3/uL (130-400); RBC Distribution Width 13.5 % (11.5-14.5); Red Blood Cell (RBC) Count 2.65 mill/uL (4.70-6.10); White Blood Cell (WBC) Count 4.2 10x3/uL (4.8-10.8)
[2022-06-08] MEDS: Aspirin 81 mg Enteric Coated Tablet PO SCH (09:13)
[2022-06-08] MEDS: Carvedilol 6.25 MG TAB PO SCH ×2 (09:13→16:13)
[2022-06-08] MEDS: VANCOMYCIN 1.25 GM/250 ML BAG 1.25 GM in Premix Bag 1 BAG IVPB SCH (16:14)
[2022-06-08] MEDS: Rosuvastatin 10 MG TAB PO SCH (20:39)
[2022-06-09] MEDS: Piperacillin/Tazobactam 3.375 GM in Sodium Chloride 0.9% 100 ML IVPB SCH ×3 (06:02→21:30)
[2022-06-09] MEDS: Carvedilol 6.25 MG TAB PO SCH ×2 (08:24→18:06)
[2022-06-09] MEDS: Aspirin 81 mg Enteric Coated Tablet PO SCH (08:24)
[2022-06-09] MEDS: Morphine 2 MG/ML VIAL SLOW IVP PRN ×2 (11:25→21:30)
[2022-06-09] MEDS: VANCOMYCIN 1.25 GM/250 ML BAG 1.25 GM in Premix Bag 1 BAG IVPB SCH (17:14)
[2022-06-09] MEDS: Lactated Ringer's 1,000 ML IV SCH (18:46)
[2022-06-09] MEDS: Rosuvastatin 10 MG TAB PO SCH (21:30)
[2022-06-10] MEDS: Morphine 2 MG/ML VIAL SLOW IVP PRN ×2 (04:42→18:44)
[2022-06-10] MEDS: Lactated Ringer's 1,000 ML IV SCH ×2 (04:44→21:32)
[2022-06-10] MEDS: Piperacillin/Tazobactam 3.375 GM in Sodium Chloride 0.9% 100 ML IVPB SCH ×3 (05:03→21:32)
[2022-06-10] MEDS: Carvedilol 6.25 MG TAB PO SCH ×2 (10:02→18:44)
[2022-06-10] MEDS: Aspirin 81 mg Enteric Coated Tablet PO SCH (10:02)
[2022-06-10] MEDS: Rosuvastatin 10 MG TAB PO SCH ×2 (21:32→21:36)
[2022-06-11] MEDS: Piperacillin/Tazobactam 3.375 GM in Sodium Chloride 0.9% 100 ML IVPB SCH ×3 (06:16→21:12)
[2022-06-11] MEDS: Carvedilol 6.25 MG TAB PO SCH ×2 (09:24→18:17)
[2022-06-11] MEDS: Aspirin 81 mg Enteric Coated Tablet PO SCH (09:24)
[2022-06-11] MEDS: Lactated Ringer's 1,000 ML IV SCH ×2 (11:03→21:12)
[2022-06-11] MEDS: Rosuvastatin 10 MG TAB PO SCH (21:12)
[2022-06-11] MEDS: Morphine 2 MG/ML VIAL SLOW IVP PRN (22:53)
[2022-06-12] MEDS: Piperacillin/Tazobactam 3.375 GM in Sodium Chloride 0.9% 100 ML IVPB SCH ×3 (05:56→21:16)
[2022-06-12] MEDS: Aspirin 81 mg Enteric Coated Tablet PO SCH (10:00)
[2022-06-12] MEDS: Carvedilol 6.25 MG TAB PO SCH ×2 (10:00→16:54)
[2022-06-12] MEDS: Morphine 2 MG/ML VIAL SLOW IVP PRN ×2 (11:22→16:53)
[2022-06-12] MEDS: Lactated Ringer's 1,000 ML IV SCH (15:05)
[2022-06-12] MEDS: Rosuvastatin 10 MG TAB PO SCH (21:17)
[2022-06-13] MEDS: Morphine 2 MG/ML VIAL SLOW IVP PRN ×2 (01:58→17:42)
[2022-06-13] MEDS: Lactated Ringer's 1,000 ML IV SCH ×2 (02:03→14:22)
[2022-06-13] MEDS: Piperacillin/Tazobactam 3.375 GM in Sodium Chloride 0.9% 100 ML IVPB SCH ×3 (05:43→20:59)
[2022-06-13] MEDS: Carvedilol 6.25 MG TAB PO SCH ×2 (09:06→17:26)
[2022-06-13] MEDS: Aspirin 81 mg Enteric Coated Tablet PO SCH (09:07)
[2022-06-13] MEDS: Rosuvastatin 10 MG TAB PO SCH (20:59)
[2022-06-14] MEDS: Piperacillin/Tazobactam 3.375 GM in Sodium Chloride 0.9% 100 ML IVPB SCH ×3 (06:26→21:28)
[2022-06-14] MEDS: Aspirin 81 mg Enteric Coated Tablet PO SCH (08:07)
[2022-06-14] MEDS: Carvedilol 6.25 MG TAB PO SCH ×2 (08:07→17:15)
[2022-06-14] MEDS: Lactated Ringer's 1,000 ML IV SCH ×2 (09:30→14:00)
[2022-06-14] MEDS: Rosuvastatin 10 MG TAB PO SCH (21:32)
[2022-06-14] MEDS ORDERED: hydrALAZINE 25 MG TAB PO SCH (22:00)
[2022-06-14 23:10] LABS: #Lymphocytes 1.1 thou/uL (1.20-3.40); #Monocytes 0.4 thou/uL (0.11-0.59); #Neutrophils 4.4 thou/uL (1.40-6.50); %Basophils 0.3 % (0.0-1.0); %Eosinophils 0.5 % (0.0-10.0); %Monocytes 6.4 % (0.0-10.0); %Neutrophils 73.8 % (42.0-75.0); Hemoglobin 9.6 g/dL (14.0-18.0); Mean Corpuscular Hemoglobin 29.2 pg (27.0-31.0); Mean Corpuscular Volume 91.2 fl (78.0-98.0); Platelet Count 232 10x3/uL (130-400); RBC Distribution Width 14.3 % (11.5-14.5); Red Blood Cell (RBC) Count 3.29 mill/uL (4.70-6.10); White Blood Cell (WBC) Count 5.9 10x3/uL (4.8-10.8)
[2022-06-14 23:32] LABS: ALT (SGPT) 17 U/L (8-55); AST (SGOT) 24 U/L (5-34); Albumin 2.3 g/dL (3.4-4.8); Alkaline Phosphatase 62 U/L (40-110); Anion Gap 13 mmol/L (10-20); BUN (Urea Nitrogen) 7 mg/dL (8.4-25.7); Bilirubin, Total 1.1 mg/dL (0.2-1.2); Calc. Creatinine Clearance 86 mL/min (70-130); Calcium 7.9 mg/dL (7.8-10.44); Carbon Dioxide 26 mmol/L (23-31); Chloride 105 mmol/L (98-107); Estimated GFR 96; Globulin 3.9 g/dL (2.4-3.5); Glucose 120 mg/dL (83-110); Magnesium 1.7 mg/dL (1.6-2.6); Protein, Total 6.2 g/dL (5.8-8.1); Sodium 142 mmol/L (136-145)
[2022-06-14 23:36] LABS: Phosphorus 1.5 mg/dL (2.3-4.7); Potassium 2.2 mmol/L (3.5-5.1)
[2022-06-14] MEDS ORDERED: Potassium Bicarbonate/Cit Ac 20 MEQ TAB PO SCH (23:45)
[2022-06-14] MEDS: Potassium Bicarbonate/Cit Ac 20 MEQ TAB PO SCH (23:54)
[2022-06-14] MEDS: PHOS-NAK 1 PKT PACK PO SCH (23:54)
[2022-06-15] MEDS: Potassium Bicarbonate/Cit Ac 20 MEQ TAB PO SCH (01:48)
[2022-06-15] MEDS: PHOS-NAK 1 PKT PACK PO SCH ×3 (03:44→11:29)
[2022-06-15] MEDS: Lactated Ringer's 1,000 ML IV SCH ×2 (05:00→21:02)
[2022-06-15] MEDS: Piperacillin/Tazobactam 3.375 GM in Sodium Chloride 0.9% 100 ML IVPB SCH ×3 (05:01→21:02)
[2022-06-15] MEDS ORDERED: Magnesium 2 GM/50 ML(in water) 2 GM in Premix Bag 1 BAG IVPB SCH ×2 (05:45→07:30)
[2022-06-15 06:45] LABS: Anion Gap 13 mmol/L (10-20); BUN (Urea Nitrogen) 7 mg/dL (8.4-25.7); Calc. Creatinine Clearance 90 mL/min (70-130); Calcium 7.5 mg/dL (7.8-10.44); Carbon Dioxide 24 mmol/L (23-31); Chloride 107 mmol/L (98-107); Estimated GFR 98; Glucose 107 mg/dL (83-110); Magnesium 1.5 mg/dL (1.6-2.6); Phosphorus 1.7 mg/dL (2.3-4.7); Potassium 3.1 mmol/L (3.5-5.1); Sodium 141 mmol/L (136-145)
[2022-06-15] MEDS ORDERED: Potassium Bicarbonate/Cit Ac 20 MEQ TAB PO SCH (07:00)
[2022-06-15] MEDS ORDERED: Potassium Chloride 20 MEQ TAB PO SCH (07:30)
[2022-06-15 08:04] LABS: Anion Gap 15 mmol/L (10-20); BUN (Urea Nitrogen) 7 mg/dL (8.4-25.7); Calc. Creatinine Clearance 93 mL/min (70-130); Calcium 7.6 mg/dL (7.8-10.44); Carbon Dioxide 25 mmol/L (23-31); Chloride 107 mmol/L (98-107); Estimated GFR 98; Glucose 106 mg/dL (83-110); Phosphorus 1.8 mg/dL (2.3-4.7); Potassium 3.1 mmol/L (3.5-5.1); Sodium 144 mmol/L (136-145)
[2022-06-15] MEDS: Aspirin 81 mg Enteric Coated Tablet PO SCH (08:49)
[2022-06-15] MEDS: Carvedilol 6.25 MG TAB PO SCH ×2 (08:49→16:36)
[2022-06-15] MEDS: NIFEdipine XL 30 MG TAB PO SCH (08:49)
[2022-06-15] MEDS: Potassium Chloride 10 MEQ in Premix Bag 1 BAG IVPB SCH ×4 (11:24→15:44)
[2022-06-15] MEDS: Morphine 2 MG/ML VIAL SLOW IVP PRN (11:44)
[2022-06-15] MEDS: Rosuvastatin 10 MG TAB PO SCH (21:02)
[2022-06-16] MEDS: Piperacillin/Tazobactam 3.375 GM in Sodium Chloride 0.9% 100 ML IVPB SCH (05:44)
[2022-06-16 07:25] LABS: Anion Gap 12 mmol/L (10-20); BUN (Urea Nitrogen) 10 mg/dL (8.4-25.7); Calc. Creatinine Clearance 91 mL/min (70-130); Calcium 7.8 mg/dL (7.8-10.44); Carbon Dioxide 26 mmol/L (23-31); Chloride 105 mmol/L (98-107); Estimated GFR 98; Glucose 104 mg/dL (83-110); Phosphorus 1.8 mg/dL (2.3-4.7); Sodium 140 mmol/L (136-145)
[2022-06-16] MEDS: Carvedilol 6.25 MG TAB PO SCH ×2 (08:23→16:57)
[2022-06-16] MEDS: NIFEdipine XL 30 MG TAB PO SCH (08:23)
[2022-06-16] MEDS: Aspirin 81 mg Enteric Coated Tablet PO SCH (08:23)
[2022-06-16] MEDS: PHOS-NAK 1 PKT PACK PO SCH ×2 (08:26→13:02)
[2022-06-16] MEDS: Lactated Ringer's 1,000 ML IV SCH ×2 (08:30→21:07)
[2022-06-16] MEDS ORDERED: Potassium Chloride 20 MEQ TAB PO SCH (08:30)
[2022-06-16] MEDS ORDERED: Magnesium 2 GM/50 ML(in water) 2 GM in Premix Bag 1 BAG IVPB SCH (09:00)
[2022-06-16] MEDS: Potassium Chloride 10 MEQ in Premix Bag 1 BAG IVPB SCH ×4 (10:05→13:37)
[2022-06-16] MEDS: Rosuvastatin 10 MG TAB PO SCH (21:06)
[2022-06-16] MEDS: Morphine 2 MG/ML VIAL SLOW IVP PRN (23:59)
[2022-06-17] MEDS: NIFEdipine XL 30 MG TAB PO SCH (09:33)
[2022-06-17] MEDS: Aspirin 81 mg Enteric Coated Tablet PO SCH (09:33)
[2022-06-17] MEDS: Carvedilol 6.25 MG TAB PO SCH ×2 (09:34→16:20)
[2022-06-17 09:35] LABS: Anion Gap 12 mmol/L (10-20); BUN (Urea Nitrogen) 10 mg/dL (8.4-25.7); Calc. Creatinine Clearance 93 mL/min (70-130); Calcium 7.9 mg/dL (7.8-10.44); Carbon Dioxide 23 mmol/L (23-31); Chloride 107 mmol/L (98-107); Estimated GFR 98; Glucose 88 mg/dL (83-110); Phosphorus 2.5 mg/dL (2.3-4.7); Potassium 3.3 mmol/L (3.5-5.1); Sodium 139 mmol/L (136-145)
[2022-06-17] MEDS: Lactated Ringer's 1,000 ML IV SCH (09:59)
[2022-06-17] MEDS ORDERED: Magnesium 2 GM/50 ML(in water) 2 GM in Premix Bag 1 BAG IVPB SCH (10:00)
[2022-06-17] MEDS ORDERED: Potassium Chloride 20 MEQ TAB PO SCH (10:15)
[2022-06-17 15:54] VITALS: BP 152/78; TEMP 97.6
== END 2022-06-17 15:20 | disposition hospice, home (50) | DRG 299 ==
LOC: SURG A 16:17
PROVIDERS: ADMIT Internal Medicine; ATTEND Hospitalist
DX: I70.261 Atherosclerosis of native arteries of extremities with gangrene, right leg (principal); U07.1 COVID-19; E44.0 Moderate protein-calorie malnutrition; I69.951 Hemiplegia and hemiparesis following unspecified cerebrovascular disease affecting right dominant side; I50.32 Chronic diastolic (congestive) heart failure; Z66 Do not resuscitate; E87.6 Hypokalemia; E78.5 Hyperlipidemia, unspecified; E86.0 Dehydration; D63.8 Anemia in other chronic diseases classified elsewhere; R73.9 Hyperglycemia, unspecified; Z20.822 Contact with and (suspected) exposure to COVID-19; I11.0 Hypertensive heart disease with heart failure; D64.9 Anemia, unspecified; N40.0 Benign prostatic hyperplasia without lower urinary tract symptoms; E83.39 Other disorders of phosphorus metabolism; Z74.01 Bed confinement status; Z79.82 Long term (current) use of aspirin; Z79.51 Long term (current) use of inhaled steroids; Z79.899 Other long term (current) drug therapy; Z95.1 Presence of aortocoronary bypass graft; L89.150 Pressure ulcer of sacral region, unstageable; Z68.21 Body mass index [BMI] 21.0-21.9, adult
CPT/HCPCS: 36415; 80048; 80053; 80202; 83735; 84100; 85025; 85610; 85730; 86850; 86900; 86901; 87040; 93005; 93010; 97139; J1650; J2272; J2543; J3370; J3370-JW; J3475; J3480; J3490; J7120